=== PATIENT | female | born 1935 | race Caucasian/White ===

== ENCOUNTER 2018-03-19 05:15 | Observation (INO) | payer MEDICARE ==
[2018-03-19] MEDS ORDERED: ENALAPRILAT 1.25 MG/ML 1 ML VIAL IVP STA (06:02)
[2018-03-19 06:11] LABS: Basophils % (A) 0 %; Eosinophils # (A) 0.2 k/uL (0-0.7); Eosinophils % (A) 3 %; HCT 39.9 % (34.0-46.0); Lymphocytes # (A) 2.1 k/uL (1.0-4.8); Lymphocytes % (A) 26 %; MCH 30.3 pg (25.0-35.0); MCHC 32.6 g/dL (31.0-37.0); MCV 92.9 fL (80.0-100.0); Mean Platelet Volume 7.9; Monocytes # (A) 0.7 k/uL (0-1.0); Monocytes % (A) 9 %; Neutrophils # (A) 4.7 k/uL (1.3-7.7); Neutrophils % (A) 59 %; Platelet Count 223 k/uL (150-450); RBC 4.29 m/uL (3.80-5.40); RDW 12.8 % (11.5-15.5); WBC 7.9 k/uL (3.8-10.6)
[2018-03-19 06:20] LABS: Partial Thromboplastin Time 22.2 sec (22.0-30.0)
[2018-03-19 06:22] LABS: Albumin 3.6 g/dL (3.5-5.0); Calcium 9.3 mg/dL (8.4-10.2); Magnesium 1.8 mg/dL (1.6-2.3); Potassium 3.8 mmol/L (3.5-5.1); Total Bilirubin 0.7 mg/dL (0.2-1.3); Total Protein 6.2 g/dL (6.3-8.2)
--- NOTE | 2018-03-19 06:23 | ED ---
General Adult HPI - General Chief complaint: Recheck/Abnormal Lab/Rx Stated complaint: hypertension Time Seen by Provider: 03/19/18 05:28 Source: patient Mode of arrival: EMS Limitations: no limitations - History of Present Illness Initial comments: Marielle is a sweet 82-year-old female who presents the emergency department today for evaluation of persistent lightheadedness and hypertension. Patient reports that approximately 2 weeks ago she had multiple changes to her medications. Her valsartan which she has been on for a number of years was discontinued. Her Lasix which she had been on was discontinued by her primary care physician due to an kidney function, and addition her pharmacy sent her metoprolol succinate rather than tartrate which caused her severe lightheadedness and she couldn't take it and had to await the proper medication being delivered to her. Her ports that since these medication changes she's been experiencing lightheadedness intermittently. She states that on of last week they had a republican at her living facility and she ate a lot of chocolate and sweets and is that she knows causes her migraines. She reports that she did develop a pretty significant headache that night but attributed it to the food she was eating. She was evaluated by the care provider at her home at that time but refused transfer to the ER. Patient reports that since that time she's had mild diffuse headache, and today she got up to use the restroom from sleep and felt very lightheaded. She checked her blood pressure and it was over 200/100 so the ambulance was called for transfer to the ER Patient has a history of headaches, she reports that this is similar in character to previous. Eyes any vision change or difficulty spacer swallowing hearing loss or focal neurologic deficits. She denies any chest pain, palpitations or shortness of breath. She's been able to attend to her regular daily activities without difficulty. - Related Data Home Medications Medication Instructions Recorded Confirmed Metoprolol Tartrate [Lopressor] 50 mg PO BID 03/19/18 03/19/18 Allergies Allergy/AdvReac Type Severity Reaction Status Date / Time codeine AdvReac Unknown Verified 03/19/18 05:20 Review of Systems ROS Statement: Those systems with pertinent positive or pertinent negative responses have been documented in the HPI. ROS Other: All systems not noted in ROS Statement are negative. Past Medical History Past Medical History: CVA/TIA, Hyperlipidemia, Hypertension History of Any Multi-Drug Resistant Organisms: None Reported Past Surgical History: Appendectomy, Hysterectomy, Orthopedic Surgery Past Psychological History: No Psychological Hx Reported Smoking Status: Never smoker Past Alcohol Use History: None Reported Past Drug Use History: None Reported General Exam - General Exam Comments Initial Comments: GENERAL: Patient is well-developed and well-nourished. Patient is nontoxic and well- hydrated and is in no distress. HENT: Normocephalic, Atraumatic. Neck is soft and supple. No significant lymphadenopathy is noted. Oropharynx is clear. Moist mucous membranes. Neck has full range of motion without eliciting any pain. EYES: The sclera were anicteric and conjunctiva were pink and moist. Extraocular movements were intact and pupils were equal round and reactive to light. Eyelids were unremarkable. PULMONARY: Unlabored respirations. Good breath sounds bilaterally. No audible rales rhonchi or wheezing was noted. CARDIOVASCULAR: There is a regular rate and rhythm without any murmurs gallops or rubs. ABDOMEN: Soft and nontender with normal bowel sounds. SKIN: Skin is clear with no lesions or rashes and otherwise unremarkable. NEUROLOGIC: Patient is alert and oriented x3. Cranial nerves II through XII are grossly intact. Motor and sensory are also intact. Normal speech, volume and content. Symmetrical smile. MUSCULOSKELETAL: Normal extremities with adequate strength and full range of motion. No lower extremity swelling or edema. No calf tenderness. LYMPHATICS: No significant lymphadenopathy is noted PSYCHIATRIC: Normal psychiatric evaluation. Limitations: no limitations Limitations: no limitations Course Vital Signs 03/19/18 03/19/18 03/19/18 05:15 06:46 07:27 Temperature 98.8 F Pulse Rate 68 60 70 Respiratory 20 18 18 Rate Blood Pressure 202/90 157/67 182/79 O2 Sat by Pulse 96 98 99 Oximetry 03/19/18 07:57 Temperature Pulse Rate 56 L Respiratory 18 Rate Blood Pressure 190/74 O2 Sat by Pulse 98 Oximetry EKG Findings - EKG Comments: EKG Findings:: EKG obtained at 6:07 AM, rate is 53, rhythm is sinus bradycardia there are no acute ST elevations or depressions no evidence of acute ischemia or infarction. Medical Decision Making - Medical Decision Making Labs and head CT were ordered IV and enaliprilat was ordered due to patient's persistent bradycardia and hypertension His blood pressure responded transiently to this medication however blood pressure again returned to greater than [address] with chronic ischemic changes Labs at baseline, no elevation of troponin or renal function Patient with persistent headache after blood pressure normalized, as well as some unsteadiness on her feet I attempted to call patient's primary care physician but office was not yet open. This time I do feel the patient warrants admission for evaluation and monitoring of her blood pressure and management of her blood pressure medications. I will feel patient is safe to do this at home if she continues to have symptoms and cannot recall the medication she has been prescribed. Patient care discussed with Dr. Castro who accepts admission for hypertensive urgency - Lab Data Result diagrams: 03/19/18 05:23 03/19/18 05:23 Lab Results 03/19/18 03/19/18 03/19/18 Range/Units 05:23 05:23 05:23 WBC 7.9 (3.8-10.6) k/uL RBC 4.29 (3.80-5.40) m/uL Hgb 13.0 (11.4-16.0) gm/dL Hct 39.9 (34.0-46.0) % MCV 92.9 (80.0-100.0) fL MCH 30.3 (25.0-35.0) pg MCHC 32.6 (31.0-37.0) g/dL RDW 12.8 (11.5-15.5) % Plt Count 223 (150-450) k/uL Neutrophils % 59 % Lymphocytes % 26 % Monocytes % 9 % Eosinophils % 3 % Basophils % 0 % Neutrophils # 4.7 (1.3-7.7) k/uL Lymphocytes # 2.1 (1.0-4.8) k/uL Monocytes # 0.7 (0-1.0) k/uL Eosinophils # 0.2 (0-0.7) k/uL Basophils # 0.0 (0-0.2) k/uL PT (9.0-12.0) sec INR (<1.2) APTT (22.0-30.0) sec Sodium 139 (137-145) mmol/L Potassium 3.8 (3.5-5.1) mmol/L Chloride 107 (98-107) mmol/L Carbon Dioxide 25 (22-30) mmol/L Anion Gap 7 mmol/L BUN 19 H (7-17) mg/dL Creatinine 0.90 (0.52-1.04) mg/dL Est GFR (CKD-EPI)AfAm 69 (>60 ml/min/1.73 sqM) Est GFR (CKD-EPI)NonAf 60 (>60 ml/min/1.73 sqM) Glucose 126 H (74-99) mg/dL Calcium 9.3 (8.4-10.2) mg/dL Magnesium 1.8 (1.6-2.3) mg/dL Total Bilirubin 0.7 (0.2-1.3) mg/dL AST 23 (14-36) U/L ALT 30 (9-52) U/L Alkaline Phosphatase 46 (38-126) U/L Total Creatine Kinase 25 L (30-135) U/L CK-MB (CK-2) 0.5 (0.0-2.4) ng/mL CK-MB (CK-2) Rel Index 2.0 Troponin I <0.012 (0.000-0.034) ng/mL NT-Pro-B Natriuret Pep pg/mL Total Protein 6.2 L (6.3-8.2) g/dL Albumin 3.6 (3.5-5.0) g/dL 03/19/18 03/19/18 Range/Units 05:23 05:23 WBC (3.8-10.6) k/uL RBC (3.80-5.40) m/uL Hgb (11.4-16.0) gm/dL Hct (34.0-46.0) % MCV (80.0-100.0) fL MCH (25.0-35.0) pg MCHC (31.0-37.0) g/dL RDW (11.5-15.5) % Plt Count (150-450) k/uL Neutrophils % % Lymphocytes % % Monocytes % % Eosinophils % % Basophils % % Neutrophils # (1.3-7.7) k/uL Lymphocytes # (1.0-4.8) k/uL Monocytes # (0-1.0) k/uL Eosinophils # (0-0.7) k/uL Basophils # (0-0.2) k/uL PT 10.0 (9.0-12.0) sec INR 1.0 (<1.2) APTT 22.2 (22.0-30.0) sec Sodium (137-145) mmol/L Potassium (3.5-5.1) mmol/L Chloride (98-107) mmol/L Carbon Dioxide (22-30) mmol/L Anion Gap mmol/L BUN (7-17) mg/dL Creatinine (0.52-1.04) mg/dL Est GFR (CKD-EPI)AfAm (>60 ml/min/1.73 sqM) Est GFR (CKD-EPI)NonAf (>60 ml/min/1.73 sqM) Glucose (74-99) mg/dL Calcium (8.4-10.2) mg/dL Magnesium (1.6-2.3) mg/dL Total Bilirubin (0.2-1.3) mg/dL AST (14-36) U/L ALT (9-52) U/L Alkaline Phosphatase (38-126) U/L Total Creatine Kinase (30-135) U/L CK-MB (CK-2) (0.0-2.4) ng/mL CK-MB (CK-2) Rel Index Troponin I (0.000-0.034) ng/mL NT-Pro-B Natriuret Pep 627 pg/mL Total Protein (6.3-8.2) g/dL Albumin (3.5-5.0) g/dL Disposition Clinical Impression: Hypertensive urgency Disposition: ADMITTED IP TO THIS HOSP Referrals: Kenai Nava MD [Primary Care Provider] - 1-2 days
[2018-03-19 06:31] LABS: Creatine Kinase 25 U/L (30-135)
[2018-03-19 06:44] LABS: Creatine Kinase MB 0.5 ng/mL (0.0-2.4); Troponin I <0.012 ng/mL (0.000-0.034)
--- NOTE | 2018-03-19 06:58 | CT ---
EXAM: CT Head Without Intravenous Contrast CLINICAL HISTORY: headache, BP 202/100 TECHNIQUE: Axial computed tomography images of the head/brain without intravenous contrast. CTDI is 55.40 mGy and DLP is 1010.50 mGy-cm. This CT exam was performed using one or more of the following dose reduction techniques: automated exposure control, adjustment of the mA and/or kV according to patient size, and/or use of iterative reconstruction technique. COMPARISON: No relevant prior studies available. FINDINGS: Brain: Cerebral atrophy is identified. Periventricular and subcortical deep white matter hypodense changes noted. No hemorrhage. Ventricles: Unremarkable. No ventriculomegaly. Bones/joints: Unremarkable. No acute fracture. Soft tissues: Unremarkable. Vasculature: Episodic calcification of the cavernous and supraclinoid internal carotid arteries noted. Sinuses: Unremarkable as visualized. No acute sinusitis. Mastoid air cells: Unremarkable as visualized. No mastoid effusion. IMPRESSION: No acute intracranial process identified. Underlying cerebral atrophy and presumed microvascular deep white matter changes incidentally noted.
--- NOTE | 2018-03-19 07:15 | XR ---
EXAM: XR Chest, 2 Views CLINICAL HISTORY: Chest pain TECHNIQUE: Frontal and lateral views of the chest. COMPARISON: No relevant prior studies available. FINDINGS: Lungs: No segmental airspace disease identified. Subsegmental changes in the lingular segments is difficult to exclude. No radiographic findings for CHF. Pleural space: No pleural effusion. No pneumothorax. Heart: Cardiomegaly of uncertain chronicity. Mediastinum: No significant abnormality suggested. Bones/joints: Degenerative changes of the thoracic spine. Vasculature: Atherosclerotic calcification of the aortic arch. IMPRESSION: Cardiomegaly of uncertain chronicity. No segmental airspace disease. No pleural effusion or pneumothorax.
[2018-03-19] MEDS ORDERED: NALOXONE 0.4 MG/ML 1 ML VIAL IV PRN (08:06)
[2018-03-19] MEDS ORDERED: cloNIDine HCL 0.1 MG TAB PO STA (08:07)
[2018-03-19] MEDS: METOPROLOL TARTRATE 50 MG TAB PO SCH ×2 (10:12→22:08)
--- NOTE | 2018-03-19 11:05 | P.HPIM ---
History of Present Illness H&P Date: 03/19/18 Chief Complaint: Dizziness and hypertension This is an 82-year-old female patient of Dr. Lizama. Patient presented to the emergency room with complaints of lightheadedness and high blood pressure. Patient has been followed by her primary care provider in about 2 weeks ago had her medications switched including her Lasix being discontinued due to her kidney function. For the past 2 weeks patient has been on Metroprolol 50 mg twice a day and Dyazide when necessary. Patient stated that she is required to take the Dyazide approximately 3 times this week due to increased peripheral edema. Patient reports that for the past week she's had headache along with the feeling of feeling lightheaded. Patient checks her blood pressure at home and was over 200 an ambulance was called and patient was transferred to the ER. Patient has known past medical history of CVA proximally 2 years ago with no residuals, hyperlipidemia and hypertension. Patient received 0.1 mg of Catapres and 1.25 g IV push of Vasotec in the emergency room. At that time Joe patient's blood pressure was 202/90 and heart rate was 68. CT of head completed showing no acute intracranial process identified. Underlying cerebral atrophy and presumed microvascular deep white matter changes incidentally noted. Chest x-ray completed showing cardiomegaly of uncertain chronicicty. No segmental airspace disease. No pleural effusion or pneumothorax. EKG completed showing sinus bradycardia heart rate 53. Upon arrival to the floor patient's blood pressure low 100 with repeat blood pressure in the 80s. Heart rate 50. Lopressor held. Cardiology services have been consulted. Patient denies any symptoms of low blood pressure. Patient is alert and oriented 3. Patient denies nausea vomiting or diarrhea. Patient denies chest pain or shortness of breath. Patient denies any urinary burning or frequency. Awaiting cardiology consult. Per nursing staff will repeat blood pressure. Review of Systems Please refer to HPI otherwise unremarkable Past Medical History Past Medical History: CVA/TIA, Hyperlipidemia, Hypertension History of Any Multi-Drug Resistant Organisms: None Reported Past Surgical History: Appendectomy, Hysterectomy, Orthopedic Surgery Past Psychological History: No Psychological Hx Reported Smoking Status: Never smoker Past Alcohol Use History: None Reported Past Drug Use History: None Reported Medications and Allergies Home Medications Medication Instructions Recorded Confirmed Type Artificial Tears-Hypromellose 1 drops BOTH EYES BID PRN 03/19/18 03/19/18 History [Artificial Tear Drops] Brinzolamide [Azopt 1% Ophth Susp] 2 drop LEFT EYE BID 03/19/18 03/19/18 History Cholecalciferol [Vitamin D3] 1,000 unit PO DAILY 03/19/18 03/19/18 History Latanoprost [Xalatan 0.005%] 1 drop BOTH EYES HS 03/19/18 03/19/18 History Metoprolol Tartrate [Lopressor] 50 mg PO BID 03/19/18 03/19/18 History Ranitidine HCl [Zantac] 150 mg PO HS 03/19/18 03/19/18 History Triamterene-Hctz 37.5-25Mg 1 cap PO DAILY PRN 03/19/18 03/19/18 History [Dyazide 37.5-25 Capsule] Vits A,C,E/Lutein/Minerals 1 tab PO DAILY 03/19/18 03/19/18 History [Ocuvite with Lutein Tablet] Allergies Allergy/AdvReac Type Severity Reaction Status Date / Time codeine AdvReac Unknown Verified 03/19/18 08:30 telmisartan [From Micardis] AdvReac DIZZINESS Verified 03/19/18 08:39 Physical Exam Vitals: Vital Signs Temp Pulse Resp BP Pulse Ox 03/19/18 09:20 97.8 F 03/19/18 08:55 50 L 18 166/72 98 03/19/18 08:27 57 L 18 158/107 97 03/19/18 07:57 56 L 18 190/74 98 03/19/18 07:27 70 18 182/79 99 03/19/18 06:46 60 18 157/67 98 03/19/18 05:15 98.8 F 68 20 202/90 96 Intake and Output 03/18/18 03/19/18 03/19/18 22:59 06:59 14:59 Other: Voiding Method Toilet Incontinent Weight 73.482 kg Head normocephalic Neck supple Lungs clear to auscultation bilaterally no wheezing or crackles Heart regular rate and rhythm S1-S2, no rub or gallop Abdomen is soft nontender nondistended positive bowel sounds no hepatosplenomegaly Extremities no edema Neuro alert and orientated to 3 Results CBC & Chem 7: 03/19/18 05:23 03/19/18 05:23 Labs: Abnormal Lab Results - Last 24 Hours (Table) 03/19/18 03/19/18 Range/Units 05:23 05:23 BUN 19 H (7-17) mg/dL Glucose 126 H (74-99) mg/dL Total Creatine Kinase 25 L (30-135) U/L Total Protein 6.2 L (6.3-8.2) g/dL Thrombosis Risk Factor Assmnt - Choose All That Apply Each Factor Represents 1 point: Swollen legs (current) Each Risk Factor Represents 3 Points: Age 75 years or older Thrombosis Risk Factor Assessment Total Risk Factor Score: 4 Thrombosis Risk Factor Assessment Level: Moderate Risk Assessment and Plan Assessment: 1. Hypertensive urgency. Initial blood pressure 202/90. She received Catapres and Vasotec emergency room. Patient has been taking Lopressor 50 mg twice a day along with Dyazide when necessary at home for the past 2 weeks. Patient's blood pressure now hypotensive. Chest x-ray completed showing cardiomegaly of uncertain chronicity. No segmental airspace disease. No pleural effusion or pneumothorax. Cardiology services have been consulted. Parameters set for Lopressor. 2. History of CVA. Head CT completed emergency room showing no acute intracranial process identified. Underlying cerebral atrophy and presumed microvascular deep white matter changes incidentally noted. 3. History of hyperlipidemia 4. History of macular degeneration. Home eyedrops reordered 5. History of acute kidney injury. Creatinine on this admission 0.90 and bun 19 6. Bradycardia. Heart rate in the 50s. Patient did receive Catapres in the emergency department. EKG completed showing sinus bradycardia. Cardiology services have been consulted. DVT prophylaxis Lovenox and GI prophylaxis Pepcid Time with Patient: Greater than 30 (Greater than 60% of the total time spent in counseling and coordination of care. I performed an examination of the patient and discussed their management with the Nurse Practitioner. I have reviewed the Nurse Practitioner's notes and agree with the documented findings and plan of care)
[2018-03-19] MEDS: ACETAMINOPHEN TAB 325 MG TAB PO PRN ×2 (13:59→18:26)
[2018-03-19] MEDS ORDERED: NON-FORMULARY DRUG (Ranitidine Hcl [Zantac] 150 MG) PO SCH (21:00)
[2018-03-19] MEDS: DORZOLAMIDE HCL 2% DROPS 10 ML BTL LEFT EYE SCH (22:07)
[2018-03-19] MEDS: ARTIFICIAL TEARS-HYPROMELLOSE DROPS 15 ML BTL BOTH EYES PRN (22:09)
[2018-03-19] MEDS: LATANOPROST 0.005% OPHTH DROPS 2.5 ML BTL BOTH EYES SCH (23:01)
[2018-03-20] MEDS: CHOLECALCIFEROL 1,000 UNIT TAB PO SCH (08:31)
[2018-03-20] MEDS: DORZOLAMIDE HCL 2% DROPS 10 ML BTL LEFT EYE SCH ×2 (08:31→21:01)
[2018-03-20] MEDS: ENOXAPARIN 40 MG/0.4 ML SYRINGE SQ SCH (08:32)
[2018-03-20] MEDS: FAMOTIDINE 20 MG TAB PO SCH (08:32)
[2018-03-20] MEDS: METOPROLOL TARTRATE 50 MG TAB PO SCH ×2 (08:32→21:04)
[2018-03-20] MEDS: VIT A,C & E-LUTEIN-MINERALS 1 EACH TAB PO SCH (08:33)
[2018-03-20] MEDS: ARTIFICIAL TEARS-HYPROMELLOSE DROPS 15 ML BTL BOTH EYES PRN ×2 (08:33→20:57)
[2018-03-20 10:37] LABS: Basophils % (A) 0 %; Eosinophils # (A) 0.3 k/uL (0-0.7); Eosinophils % (A) 4 %; HCT 40.9 % (34.0-46.0); Lymphocytes # (A) 1.5 k/uL (1.0-4.8); Lymphocytes % (A) 23 %; MCH 30.1 pg (25.0-35.0); MCHC 31.7 g/dL (31.0-37.0); Mean Platelet Volume 7.6; Monocytes # (A) 0.5 k/uL (0-1.0); Monocytes % (A) 8 %; Neutrophils % (A) 61 %; Platelet Count 223 k/uL (150-450); RDW 12.7 % (11.5-15.5); WBC 6.6 k/uL (3.8-10.6)
[2018-03-20 10:55] LABS: Albumin 3.3 g/dL (3.5-5.0); Magnesium 1.8 mg/dL (1.6-2.3); Potassium 4.1 mmol/L (3.5-5.1); Total Bilirubin 0.6 mg/dL (0.2-1.3); Total Protein 5.9 g/dL (6.3-8.2)
[2018-03-20] MEDS: amLODIPine 2.5 MG TAB PO SCH (13:30)
[2018-03-20] MEDS ORDERED: TRIAMTERENE-HCTZ 37.5-25MG 1 EACH CAP PO PRN (14:15)
--- NOTE | 2018-03-20 14:16 | P.PN ---
Subjective Progress Note Date: 03/20/18 This is an 82-year-old female patient of Dr. Lizama. Patient presented to the emergency room with complaints of lightheadedness and high blood pressure. Patient has been followed by her primary care provider in about 2 weeks ago had her medications switched including her Lasix being discontinued due to her kidney function. For the past 2 weeks patient has been on Metroprolol 50 mg twice a day and Dyazide when necessary. Patient stated that she is required to take the Dyazide approximately 3 times this week due to increased peripheral edema. Patient reports that for the past week she's had headache along with the feeling of feeling lightheaded. Patient checks her blood pressure at home and was over 200 an ambulance was called and patient was transferred to the ER. Patient has known past medical history of CVA proximally 2 years ago with no residuals, hyperlipidemia and hypertension. Patient received 0.1 mg of Catapres and 1.25 g IV push of Vasotec in the emergency room. At that time Joe patient's blood pressure was 202/90 and heart rate was 68. CT of head completed showing no acute intracranial process identified. Underlying cerebral atrophy and presumed microvascular deep white matter changes incidentally noted. Chest x-ray completed showing cardiomegaly of uncertain chronicicty. No segmental airspace disease. No pleural effusion or pneumothorax. EKG completed showing sinus bradycardia heart rate 53. Upon arrival to the floor patient's blood pressure low 100 with repeat blood pressure in the 80s. Heart rate 50. Lopressor held. Cardiology services have been consulted. Patient denies any symptoms of low blood pressure. Patient is alert and oriented 3. Patient denies nausea vomiting or diarrhea. Patient denies chest pain or shortness of breath. Patient denies any urinary burning or frequency. Awaiting cardiology consult. Per nursing staff will repeat blood pressure. On 03/20/2018 patient is currently resting comfortably in bed. Patient is alert and oriented 3. Patient does state she feels much improved from yesterday. Heart rate 61 and blood pressure 135/83. Cardiology services are following. 2-D echo has been ordered. At this time patient denies chest pain or shortness of breath. Denies any nausea vomiting or diarrhea. Denies any urinary burning or frequency. Objective - Vital Signs Vital signs: Vital Signs Temp 97.6 F 03/20/18 05:45 Pulse 61 03/20/18 13:32 Resp 20 03/20/18 05:45 BP 135/83 03/20/18 13:32 Pulse Ox 97 03/20/18 05:45 Intake & Output 03/19/18 03/20/18 03/20/18 18:59 06:59 18:59 Intake Total 230 500 Balance 230 500 Intake: Oral 230 500 Other: Voiding Method Toilet Incontinent # Voids 4 3 # Bowel Movements 1 0 - Exam Head normocephalic Neck supple Lungs clear to auscultation bilaterally no wheezing or crackles Heart regular rate and rhythm S1-S2, no rub or gallop Abdomen is soft nontender nondistended positive bowel sounds no hepatosplenomegaly Extremities no edema Neuro alert and orientated to 3 - Labs CBC & Chem 7: 03/20/18 09:45 03/20/18 09:45 Labs: Abnormal Lab Results - Last 24 Hours (Table) 03/20/18 Range/Units 09:45 Glucose 121 H (74-99) mg/dL Total Protein 5.9 L (6.3-8.2) g/dL Albumin 3.3 L (3.5-5.0) g/dL Assessment and Plan Assessment: 1. Hypertensive urgency. Initial blood pressure 202/90. She received Catapres and Vasotec emergency room. Patient has been taking Lopressor 50 mg twice a day along with Dyazide when necessary at home for the past 2 weeks. Patient's blood pressure now hypotensive. Chest x-ray completed showing cardiomegaly of uncertain chronicity. No segmental airspace disease. No pleural effusion or pneumothorax. Cardiology services have been consulted. Parameters set for Lopressor. Cardiology services following 2-D echo has been ordered. 2. History of CVA. Head CT completed emergency room showing no acute intracranial process identified. Underlying cerebral atrophy and presumed microvascular deep white matter changes incidentally noted. 3. History of hyperlipidemia 4. History of macular degeneration. Home eyedrops reordered 5. History of acute kidney injury. Creatinine on this admission 0.90 and bun 19 6. Bradycardia. Heart rate in the 50s. Patient did receive Catapres in the emergency department. EKG completed showing sinus bradycardia. Cardiology services have been consulted. 2-D echo has been ordered DVT prophylaxis Lovenox and GI prophylaxis Pepcid I performed an examination of the patient and discussed their management with the Nurse Practitioner. I have reviewed the Nurse Practitioner's notes and agree with the documented findings and plan of care
--- NOTE | 2018-03-20 15:38 | CONS ---
CONSULTATION This patient is seen for cardiac evaluation. History was obtained from the patient as well as from the records. This patient presented to the emergency room with a complaint of lightheadedness. She checked her blood pressure at home and it was elevated. This patient gives a history that she used to take valsartan before which was discontinued. Subsequently patient was advised to take the Lasix or Dyazide p.r.n. Her blood pressure a at home was 200 systolic. The patient does have a prior history of stroke without any residual deficit. The patient came to the emergency room patient received Catapres and Vasotec and subsequently her blood pressure is stable. She is feeling well. She denies any chest pain. The patient denies any history of myocardial infarction. Patient is physically and functionally independent. PAST MEDICAL HISTORY: Includes history of hypertension, hyperlipidemia, CVA and TIA, appendicectomy, hysterectomy, orthopedic surgery. HOME MEDICATIONS: Included Zantac, Lopressor and eye drops. PHYSICAL EXAMINATION: At present reveals 82-year-old female who does not appear to be in any acute distress. Patient's blood pressure now is 151/64 mmHg. Head and ENT examination is negative. Neck is supple. There is no increase in jugular venous pressure. Both the carotid pulses are felt. There is no bruit. Chest is symmetrical. Heart: The PMI is not felt. First and second heart sounds are normal. There is no evidence of any murmur. Lungs are clinically clear to auscultation and percussion. Abdomen is negative. Extremities: Peripheral pulses are 2+. EKG shows normal sinus rhythm without any acute ischemic changes. A BMP is normal. BNP was also normal. Chest x-ray is normal. CT scan of the brain was normal. FINAL IMPRESSION: This patient initially came to the emergency room with uncontrolled hypertension. Her blood pressure is now controlled. I would recommend to add amlodipine 2.5 mg daily in addition to the low blood pressure. Patient advised to keep record of her blood pressure at home. If it remains elevated, it can be increased to 5 mg daily. Echo and Doppler study will be done. MMODL / IJN: [id number] /
[2018-03-20] MEDS: LATANOPROST 0.005% OPHTH DROPS 2.5 ML BTL BOTH EYES SCH (21:02)
[2018-03-21] MEDS: ACETAMINOPHEN TAB 325 MG TAB PO PRN ×2 (01:51→05:21)
[2018-03-21] MEDS ORDERED: IBUPROFEN 600 MG TAB PO PRN (07:02)
[2018-03-21] MEDS: FAMOTIDINE 20 MG TAB PO SCH (08:19)
[2018-03-21] MEDS: ENOXAPARIN 40 MG/0.4 ML SYRINGE SQ SCH (08:19)
[2018-03-21] MEDS: CHOLECALCIFEROL 1,000 UNIT TAB PO SCH (08:19)
[2018-03-21] MEDS: amLODIPine 2.5 MG TAB PO SCH (08:19)
[2018-03-21] MEDS: METOPROLOL TARTRATE 50 MG TAB PO SCH (08:19)
[2018-03-21] MEDS: VIT A,C & E-LUTEIN-MINERALS 1 EACH TAB PO SCH (08:19)
[2018-03-21] MEDS: DORZOLAMIDE HCL 2% DROPS 10 ML BTL LEFT EYE SCH (08:20)
[2018-03-21 08:34] LABS: Basophils % (A) 0 %; Eosinophils # (A) 0.3 k/uL (0-0.7); Eosinophils % (A) 4 %; HCT 42.8 % (34.0-46.0); HGB 13.6 gm/dL (11.4-16.0); Lymphocytes # (A) 2.2 k/uL (1.0-4.8); Lymphocytes % (A) 29 %; MCH 29.6 pg (25.0-35.0); MCHC 31.7 g/dL (31.0-37.0); MCV 93.5 fL (80.0-100.0); Mean Platelet Volume 7.3; Monocytes # (A) 0.6 k/uL (0-1.0); Monocytes % (A) 8 %; Neutrophils # (A) 4.1 k/uL (1.3-7.7); Neutrophils % (A) 56 %; Platelet Count 228 k/uL (150-450); RBC 4.58 m/uL (3.80-5.40); RDW 12.8 % (11.5-15.5); WBC 7.4 k/uL (3.8-10.6)
[2018-03-21 08:43] VITALS: RESP 16; TEMP 97.9
[2018-03-21 09:05] LABS: Albumin 3.8 g/dL (3.5-5.0); Calcium 9.3 mg/dL (8.4-10.2); Potassium 4.2 mmol/L (3.5-5.1); Total Bilirubin 0.9 mg/dL (0.2-1.3); Total Protein 6.5 g/dL (6.3-8.2)
[2018-03-21 11:24] VITALS: BP 125/62; PULSE 57
--- NOTE | 2018-03-21 12:06 | ECHOF ---
Referral Reason:hypertention MEASUREMENTS -------- HEIGHT: 147.3 cm WEIGHT: 73.5 kg BP: 113/69 IVSd: 1.3 cm (0.6 - 1.1) LVIDd: 3.6 cm (3.9 - 5.3) LVPWd: 1.4 cm (0.6 - 1.1) IVSs: 1.5 cm LVIDs: 2.6 cm LVPWs: 1.6 cm LA Diam: 4.8 cm (2.7 - 3.8) LAESV Index (A-L): 54.00 ml/m Ao Diam: 2.9 cm (2.0 - 3.7) AV Cusp: 1.2 cm (1.5 - 2.6) LA Diam: 4.7 cm (2.7 - 3.8) MV EXCURSION: 13.883 mm (> 18.000) MV EF SLOPE: 74 mm/s (70 - 150) EPSS: 0.2 cm MV E Billy: 1.05 m/s MV DecT: 207 ms MV A Billy: 1.05 m/s MV E/A Ratio: 0.99 RAP: 5.00 mmHg RVSP: 46.67 mmHg FINDINGS -------- Sinus rhythm. This was a technically good study. The left ventricular size is normal. There is mild concentric left ventricular hypertrophy. Overa ll left ventricular systolic function is normal with, an EF between 60 - 65 %. Pseudonormal LV fill ing pattern, consistent with elevated LA pressure. The right ventricle is normal in size. The left atrium is markedly dilated. LA is severely dilated >40 ml/m2 The right atrial size is normal. There is mild aortic valve sclerosis. There is no evidence of aortic regurgitation. Mild mitral annular calcification present. Wstu-dt-[id number] mitral regurgitation is present. Mild tricuspid regurgitation present. There is moderate pulmonary hypertension. The right ventric ular systolic pressure, as measured by Doppler, is 46.67mmHg. Trace/mild (physiologic) pulmonic regurgitation. The aortic root size is normal. There is no pericardial effusion. CONCLUSIONS -------- 1. The left ventricular size is normal. 2. There is mild concentric left ventricular hypertrophy. 3. Overall left ventricular systolic function is normal with, an EF between 60 - 65 %. 4. The right ventricle is normal in size. 5. The left atrium is markedly dilated. 6. LA is severely dilated >40 ml/m2 7. The right atrial size is normal. 8. There is mild aortic valve sclerosis. 9. Mild mitral annular calcification present. 10. Iktx-dp-kxapxlfu mitral regurgitation is present. 11. Mild tricuspid regurgitation present. 12. There is moderate pulmonary hypertension. 13. The right ventricular systolic pressure, as measured by Doppler, is 46.67mmHg. 14. Trace/mild (physiologic) pulmonic regurgitation. 15. The aortic root size is normal. 16. There is no pericardial effusion. JIG GRINDER: Maia Moscoso RDCS
--- NOTE | 2018-03-21 13:12 | P.DS ---
Providers Date of admission: 03/19/18 08:34 Expected date of discharge: 03/21/18 Attending physician: Liya Castro Consults: 03/19/18 10:49 Consult Physician Routine Consulting Provider: Louie Arteaga Consult Reason/Comments: bradycardia and hypertension Do you want consulting provider notified?: Yes Primary care physician: Kenia [facility] Hospital Course: Discharge diagnosis 1. Hypertensive urgency. Initial blood pressure 202/90. She received Catapres and Vasotec emergency room. Patient has been taking Lopressor 50 mg twice a day along with Dyazide when necessary at home for the past 2 weeks. Patient's blood pressure now hypotensive. Chest x-ray completed showing cardiomegaly of uncertain chronicity. No segmental airspace disease. No pleural effusion or pneumothorax. Cardiology services have been consulted. Parameters set for Lopressor. Cardiology services following 2-D echo has been ordered. 2-D echo completed showing EF of 60-65%. Discussed case with cardiology INSTRUCTIONAL TECHNOLOGY TEACHER Tamara. Tavares for patient to be discharged home. Patient started on Norvasc 2.5 mg daily 2. History of CVA. Head CT completed emergency room showing no acute intracranial process identified. Underlying cerebral atrophy and presumed microvascular deep white matter changes incidentally noted. 3. History of hyperlipidemia 4. History of macular degeneration. Home eyedrops reordered 5. History of acute kidney injury. Creatinine on this admission 0.90 and bun 19 6. Bradycardia. Heart rate in the 50s. Patient did receive Catapres in the emergency department. EKG completed showing sinus bradycardia. Cardiology services have been consulted. Hospital course This is an 82-year-old female patient of Dr. Lizama. Patient presented to the emergency room with complaints of lightheadedness and high blood pressure. Patient has been followed by her primary care provider in about 2 weeks ago had her medications switched including her Lasix being discontinued due to her kidney function. For the past 2 weeks patient has been on Metroprolol 50 mg twice a day and Dyazide when necessary. Patient stated that she is required to take the Dyazide approximately 3 times this week due to increased peripheral edema. Patient reports that for the past week she's had headache along with the feeling of feeling lightheaded. Patient checks her blood pressure at home and was over 200 an ambulance was called and patient was transferred to the ER. Patient has known past medical history of CVA proximally 2 years ago with no residuals, hyperlipidemia and hypertension. Patient received 0.1 mg of Catapres and 1.25 g IV push of Vasotec in the emergency room. At that time Joe patient's blood pressure was 202/90 and heart rate was 68. CT of head completed showing no acute intracranial process identified. Underlying cerebral atrophy and presumed microvascular deep white matter changes incidentally noted. Chest x-ray completed showing cardiomegaly of uncertain chronicicty. No segmental airspace disease. No pleural effusion or pneumothorax. EKG completed showing sinus bradycardia heart rate 53. Upon arrival to the floor patient's blood pressure low 100 with repeat blood pressure in the 80s. Heart rate 50. Lopressor held. Cardiology services have been consulted. Patient denies any symptoms of low blood pressure. Patient is alert and oriented 3. Patient denies nausea vomiting or diarrhea. Patient denies chest pain or shortness of breath. Patient denies any urinary burning or frequency. Awaiting cardiology consult. Per nursing staff will repeat blood pressure. On 03/20/2018 patient is currently resting comfortably in bed. Patient is alert and oriented 3. Patient does state she feels much improved from yesterday. Heart rate 61 and blood pressure 135/83. Cardiology services are following. 2-D echo has been ordered. At this time patient denies chest pain or shortness of breath. Denies any nausea vomiting or diarrhea. Denies any urinary burning or frequency. On 03/21/2018 patient is resting comfortably in bed. Patient is alert and oriented 3. 2-D echo completed and read per cardiology. Discussed case with cardiology nurse practitioner. Okay for patient to be discharged home. Patient has been started on Norvasc 2.5 mg daily. Patient does state she has a blood pressure cuff at home and will continue to monitor blood pressure daily. Patient to follow-up outpatient with primary care provider and cardiology I performed an examination of the patient and discussed their management with the Nurse Practitioner. I have reviewed the Nurse Practitioner's notes and agree with the documented findings and plan of care Patient Condition at Discharge: Stable Plan - Discharge Summary Discharge Rx Participant: No New Discharge Prescriptions: New amLODIPine [Norvasc] 2.5 mg PO DAILY #30 tab Continue Metoprolol Tartrate [Lopressor] 50 mg PO BID Vits A,C,E/Lutein/Minerals [Ocuvite with Lutein Tablet] 1 tab PO DAILY Ranitidine HCl [Zantac] 150 mg PO HS Cholecalciferol [Vitamin D3] 1,000 unit PO DAILY Triamterene-Hctz 37.5-25Mg [Dyazide 37.5-25 Capsule] 1 cap PO DAILY PRN PRN Reason: Edema Latanoprost [Xalatan 0.005%] 1 drop BOTH EYES HS Brinzolamide [Azopt 1% Ophth Susp] 2 drop LEFT EYE BID Artificial Tears-Hypromellose [Artificial Tear Drops] 1 drops BOTH EYES BID PRN PRN Reason: DRY EYES Discharge Medication List Artificial Tears-Hypromellose [Artificial Tear Drops] 1 drops BOTH EYES BID PRN 03/19/18 [History] Brinzolamide [Azopt 1% Ophth Susp] 2 drop LEFT EYE BID 03/19/18 [History] Cholecalciferol [Vitamin D3] 1,000 unit PO DAILY 03/19/18 [History] Latanoprost [Xalatan 0.005%] 1 drop BOTH EYES HS 03/19/18 [History] Metoprolol Tartrate [Lopressor] 50 mg PO BID 03/19/18 [History] Ranitidine HCl [Zantac] 150 mg PO HS 03/19/18 [History] Triamterene-Hctz 37.5-25Mg [Dyazide 37.5-25 Capsule] 1 cap PO DAILY PRN [History] Vits A,C,E/Lutein/Minerals [Ocuvite with Lutein Tablet] 1 tab PO DAILY 03/19/18 [History] amLODIPine [Norvasc] 2.5 mg PO DAILY #30 tab 03/21/18 [Rx] Follow up Appointment(s)/Referral(s): Kenia Nava MD [Primary Care Provider] - 3 Days Brant Garcia MD [STAFF PHYSICIAN] - 1 Week Patient Instructions/Handouts: Heart Healthy Diet (DC), Hypertension (DC) Activity/Diet/Wound Care/Special Instructions: Cardiac diet. Up with assist, use walker, fall precautions. Elevate legs at rest. Monitor blood pressure at home daily for blood pressure medication Discharge Disposition: HOME SELF-CARE
--- NOTE | 2018-03-21 14:44 | P.PN ---
Subjective Mrs. Boudreaux is seen and examined sitting up at the edge of the bed eating. She denies chest pain, shortness of breath, dizziness or palpitations. Amlodipine was added to blood pressure regimen yesterday. Blood pressure 125/62 heart rate 57 afebrile and maintaining oxygen saturation on room air. Laboratory data reviewed, hgb 13.6, plt 228, sodium 140, potassium 4.2, creatinine 0.93. Echocardiogram obtained reveals preserved left ventricular systolic function with ejection fraction 60-65%, mild concentric left ventricular hypertrophy, severely dilated left atrium, mild to moderate MR, mild TR and moderate pulmonary hypertension with RVSP of 46.67 mmHg. Objective - Vital Signs Vital signs: Vital Signs Temp 97.9 F 03/21/18 07:00 Pulse 57 L 03/21/18 11:15 Resp 16 03/21/18 07:00 BP 125/62 03/21/18 11:15 Pulse Ox 98 03/21/18 07:00 Intake & Output 03/20/18 03/21/18 03/21/18 18:59 06:59 18:59 Intake Total 1210 200 Balance 1210 200 Intake: IV 10 Invasive Line 1 10 Oral 1200 200 Other: Voiding Method Toilet # Voids 1 1 - Exam GENERAL: Well-appearing, well-nourished and in no acute distress. NECK: Supple without JVD or thyromegaly. LUNGS: Breath sounds clear to auscultation bilaterally. Respiration equal and unlabored. No wheezes, rales or rhonchi. HEART: Regular rate and rhythm with systolic ejection murmur at the apex, no rubs or gallops. S1 and S2 heard. EXTREMITIES: Normal range of motion, no edema. No clubbing or cyanosis. Peripheral pulses intact. - Labs CBC & Chem 7: 03/21/18 08:22 03/21/18 08:22 Labs: Abnormal Lab Results - Last 24 Hours (Table) 03/21/18 Range/Units 08:22 BUN 19 H (7-17) mg/dL Glucose 111 H (74-99) mg/dL Assessment and Plan Assessment: ASSESSMENT Hypertensive urgency Dyslipidemia Pulmonary hypertension Mitral regurgitation PLAN Stable from a cardiac perspective. Advised patient to keep a record of her blood pressures at home. Follow-up with Dr. Garcia in 2-3 weeks. Nurse Practitioner note has been reviewed, I agree with a documented findings and plan of care. Patient was seen and examined.
== END 2018-03-21 15:05 | disposition home or self-care (01) ==
LOC: EC 05:15 → 4MS4W 08:34
PROVIDERS: ADMIT Internal Medicine; ATTEND Internal Medicine
DX: I16.0 Hypertensive urgency (principal); E78.5 Hyperlipidemia, unspecified; G43.909 Migraine, unspecified, not intractable, without status migrainosus; H35.30 Unspecified macular degeneration; I27.20 Pulmonary hypertension, unspecified; I34.0 Nonrheumatic mitral (valve) insufficiency; R60.0 Localized edema; R00.1 Bradycardia, unspecified; Z90.710 Acquired absence of both cervix and uterus; Z90.49 Acquired absence of other specified parts of digestive tract; Z86.73 Personal history of transient ischemic attack (TIA), and cerebral infarction without residual deficits; Z79.899 Other long term (current) drug therapy; Z88.5 Allergy status to narcotic agent; Z88.8 Allergy status to other drugs, medicaments and biological substances
CPT/HCPCS: 96372 ×2; 96374; 99285; 36415; 93005; 93306; 83880; 80053 ×3; 84443; 82550; 82553; 83735 ×2; 84484; 85025 ×3; 85610; 85730; 71046; 70450; G0378 ×3; J1650 ×2

== ENCOUNTER 2020-07-25 00:50 | Emergency (ER) | payer BC, MEDICARE ==
[2020-07-25] MEDS ORDERED: SODIUM CHLORIDE 0.9% 1,000 ML IV STA (00:56)
--- NOTE | 2020-07-25 00:56 | ED ---
Weakness HPI - General Stated complaint: Hypertension Time Seen by Provider: 07/25/20 00:51 Source: RN notes reviewed, old records reviewed Mode of arrival: EMS Limitations: no limitations - History of Present Illness Initial comments: This is an 84-year-old female DF for evaluation a few complaints today, complaining of headache and right-sided facial numbness and tingling. Patient is headache that is improving. But was concerned about the numbness and tingling in her face she states she does get migraine headaches had 2 migraines today took Motrin with no help. No traumas no fevers. No other complaints MD Complaint: numbness (To the right side of her face), tingling -: hour(s) Location: face Severity: mild Severity scale (1-10): 2 Quality: tingling, numbness Consistency: intermittent, now resolved Improves with: none Worsens with: none Context: history of similar Associated Symptoms: nausea/vomiting (No vomiting) - Related Data Home Medications Medication Instructions Recorded Confirmed Artificial Tears-Hypromellose 1 drops BOTH EYES BID PRN 03/19/18 03/19/18 [Artificial Tear Drops] Brinzolamide [Azopt 1% Ophth Susp] 2 drop LEFT EYE BID 03/19/18 03/19/18 Cholecalciferol [Vitamin D3 (25 1,000 unit PO DAILY 03/19/18 03/19/18 Mcg = 1000 Iu)] Latanoprost [Xalatan 0.005%] 1 drop BOTH EYES HS 03/19/18 03/19/18 Metoprolol Tartrate [Lopressor] 50 mg PO BID 03/19/18 03/19/18 Ranitidine HCl [Zantac] 150 mg PO HS 03/19/18 03/19/18 Triamterene-Hctz 37.5-25Mg 1 cap PO DAILY PRN 03/19/18 03/19/18 [Dyazide 37.5-25 Capsule] Vits A,C,E/Lutein/Minerals 1 tab PO DAILY 03/19/18 03/19/18 [Ocuvite with Lutein Tablet] Previous Rx's Medication Instructions Recorded amLODIPine [Norvasc] 2.5 mg PO DAILY #30 tab 03/21/18 Allergies Allergy/AdvReac Type Severity Reaction Status Date / Time codeine AdvReac Unknown Verified 07/25/20 01:14 telmisartan [From Micardis] AdvReac DIZZINESS Verified 07/25/20 01:14 Review of Systems ROS Statement: Those systems with pertinent positive or pertinent negative responses have been documented in the HPI. ROS Other: All systems not noted in ROS Statement are negative. Past Medical History Past Medical History: CVA/TIA, Hyperlipidemia, Hypertension History of Any Multi-Drug Resistant Organisms: None Reported Past Surgical History: Appendectomy, Hysterectomy, Orthopedic Surgery Past Psychological History: No Psychological Hx Reported Past Alcohol Use History: None Reported Past Drug Use History: None Reported General Exam - General Exam Comments Initial Comments: NIH of 0 General appearance: alert, in no apparent distress Head exam: Present: atraumatic, normocephalic, normal inspection Eye exam: Present: normal appearance, PERRL, EOMI. Absent: scleral icterus, conjunctival injection, periorbital swelling ENT exam: Present: normal exam, mucous membranes moist Neck exam: Present: normal inspection. Absent: tenderness, meningismus, lymphadenopathy Respiratory exam: Present: normal lung sounds bilaterally. Absent: respiratory distress, wheezes, rales, rhonchi, stridor Cardiovascular Exam: Present: regular rate, normal rhythm, normal heart sounds. Absent: systolic murmur, diastolic murmur, rubs, gallop, clicks GI/Abdominal exam: Present: soft, normal bowel sounds. Absent: distended, tenderness, guarding, rebound, rigid Extremities exam: Present: normal inspection, full ROM, normal capillary refill. Absent: tenderness, pedal edema, joint swelling, calf tenderness Back exam: Present: normal inspection Neurological exam: Present: alert, oriented X3, CN II-XII intact Psychiatric exam: Present: normal affect, normal mood Skin exam: Present: warm, dry, intact, normal color. Absent: rash Course Vital Signs 07/25/20 07/25/20 07/25/20 00:54 01:50 02:12 Temperature 98.3 F Pulse Rate 79 80 551 H Respiratory 18 16 16 Rate Blood Pressure 193/92 197/99 173/124 O2 Sat by Pulse 99 95 98 Oximetry 07/25/20 03:00 Temperature Pulse Rate 71 Respiratory 16 Rate Blood Pressure 162/80 O2 Sat by Pulse 97 Oximetry - Reevaluation(s) Reevaluation #1: 07/25/20 03:23 Medical records reviewed Reevaluation #2: 07/25/20 03:23 Symptoms improved here in the emergency department Reevaluation #3: 07/25/20 03:23 Patient has no current complaints Reevaluation #4: 07/25/20 03:23 Patient informed results and questions have been answered EKG Findings - EKG Comments: EKG Findings:: EKG shows sinus rhythm 73 FL 182 QRS 86 QTc 427 Medical Decision Making - Medical Decision Making 84 female DF for evaluation of headache and right-sided tingling. Numbness. Headache is resolved blood pressure resolved all without. Patient is no neurological deficit here in the ER and can be discharged home - Lab Data Result diagrams: 07/25/20 01:08 07/25/20 01:08 Lab Results 07/25/20 07/25/20 07/25/20 Range/Units 01:08 01:08 01:08 WBC 8.9 (3.8-10.6) k/uL RBC 4.49 (3.80-5.40) m/uL Hgb 13.8 (11.4-16.0) gm/dL Hct 40.4 (34.0-46.0) % MCV 90.1 (80.0-100.0) fL MCH 30.8 (25.0-35.0) pg MCHC 34.2 (31.0-37.0) g/dL RDW 12.0 (11.5-15.5) % Plt Count 236 (150-450) k/uL MPV 8.3 Neutrophils % 46 % Lymphocytes % 34 % Monocytes % 9 % Eosinophils % 7 % Basophils % 2 % Neutrophils # 4.1 (1.3-7.7) k/uL Lymphocytes # 3.0 (1.0-4.8) k/uL Monocytes # 0.8 (0-1.0) k/uL Eosinophils # 0.6 (0-0.7) k/uL Basophils # 0.1 (0-0.2) k/uL PT 9.8 (9.0-12.0) sec INR 0.9 (<1.2) APTT 19.1 L (22.0-30.0) sec Sodium 136 L (137-145) mmol/L Potassium 4.8 (3.5-5.1) mmol/L Chloride 103 (98-107) mmol/L Carbon Dioxide 30 (22-30) mmol/L Anion Gap 3 mmol/L BUN 21 H (7-17) mg/dL Creatinine 0.86 (0.52-1.04) mg/dL Est GFR (CKD-EPI)AfAm 72 (>60 ml/min/1.73 sqM) Est GFR (CKD-EPI)NonAf 62 (>60 ml/min/1.73 sqM) Glucose 116 H (74-99) mg/dL Calcium 9.0 (8.4-10.2) mg/dL Phosphorus 3.5 (2.5-4.5) mg/dL Magnesium 1.8 (1.6-2.3) mg/dL Total Bilirubin 0.9 (0.2-1.3) mg/dL AST 39 H (14-36) U/L ALT 20 (4-34) U/L Alkaline Phosphatase 50 (38-126) U/L Creatine Kinase 40 (30-135) U/L Troponin I (0.000-0.034) ng/mL Total Protein 6.8 (6.3-8.2) g/dL Albumin 3.7 (3.5-5.0) g/dL Urine Color Urine Appearance (Clear) Urine pH (5.0-8.0) Ur Specific [place] (1.001-1.035) Urine Protein (Negative) Urine Glucose (UA) (Negative) Urine Ketones (Negative) Urine Blood (Negative) Urine Nitrite (Negative) Urine Bilirubin (Negative) Urine Urobilinogen (<2.0) mg/dL Ur Leukocyte Esterase (Negative) 07/25/20 07/25/20 Range/Units 01:08 02:11 WBC (3.8-10.6) k/uL RBC (3.80-5.40) m/uL Hgb (11.4-16.0) gm/dL Hct (34.0-46.0) % MCV (80.0-100.0) fL MCH (25.0-35.0) pg MCHC (31.0-37.0) g/dL RDW (11.5-15.5) % Plt Count (150-450) k/uL MPV Neutrophils % % Lymphocytes % % Monocytes % % Eosinophils % % Basophils % % Neutrophils # (1.3-7.7) k/uL Lymphocytes # (1.0-4.8) k/uL Monocytes # (0-1.0) k/uL Eosinophils # (0-0.7) k/uL Basophils # (0-0.2) k/uL PT (9.0-12.0) sec INR (<1.2) APTT (22.0-30.0) sec Sodium (137-145) mmol/L Potassium (3.5-5.1) mmol/L Chloride (98-107) mmol/L Carbon Dioxide (22-30) mmol/L Anion Gap mmol/L BUN (7-17) mg/dL Creatinine (0.52-1.04) mg/dL Est GFR (CKD-EPI)AfAm (>60 ml/min/1.73 sqM) Est GFR (CKD-EPI)NonAf (>60 ml/min/1.73 sqM) Glucose (74-99) mg/dL Calcium (8.4-10.2) mg/dL Phosphorus (2.5-4.5) mg/dL Magnesium (1.6-2.3) mg/dL Total Bilirubin (0.2-1.3) mg/dL AST (14-36) U/L ALT (4-34) U/L Alkaline Phosphatase (38-126) U/L Creatine Kinase (30-135) U/L Troponin I 0.014 (0.000-0.034) ng/mL Total Protein (6.3-8.2) g/dL Albumin (3.5-5.0) g/dL Urine Color Light Yellow Urine Appearance Clear (Clear) Urine pH 7.0 (5.0-8.0) Ur Specific [place] 1.006 (1.001-1.035) Urine Protein Negative (Negative) Urine Glucose (UA) Negative (Negative) Urine Ketones Negative (Negative) Urine Blood Negative (Negative) Urine Nitrite Negative (Negative) Urine Bilirubin Negative (Negative) Urine Urobilinogen <2.0 (<2.0) mg/dL Ur Leukocyte Esterase Negative (Negative) - Radiology Data Radiology results: report reviewed (CT brain is negative for acute disease), image reviewed Disposition Clinical Impression: Hypertensive urgency, Migraine headache Disposition: HOME SELF-CARE Condition: Good Instructions (If sedation given, give patient instructions): Acute Headache (ED) Is patient prescribed a controlled substance at d/c from ED?: No Referrals: Yossi Fernandes DO [Primary Care Provider] - 1-2 days
[2020-07-25 01:02] VITALS: TEMP 98.3
[2020-07-25 01:19] LABS: Basophils # (A) 0.1 k/uL (0-0.2); Basophils % (A) 2 %; Eosinophils # (A) 0.6 k/uL (0-0.7); Eosinophils % (A) 7 %; HCT 40.4 % (34.0-46.0); HGB 13.8 gm/dL (11.4-16.0); Lymphocytes % (A) 34 %; MCH 30.8 pg (25.0-35.0); MCHC 34.2 g/dL (31.0-37.0); MCV 90.1 fL (80.0-100.0); Mean Platelet Volume 8.3; Monocytes # (A) 0.8 k/uL (0-1.0); Monocytes % (A) 9 %; Neutrophils # (A) 4.1 k/uL (1.3-7.7); Neutrophils % (A) 46 %; Platelet Count 236 k/uL (150-450); RBC 4.49 m/uL (3.80-5.40); WBC 8.9 k/uL (3.8-10.6)
--- NOTE | 2020-07-25 01:23 | CT ---
EXAM: CT Head Without Intravenous Contrast CLINICAL HISTORY: weakness TECHNIQUE: Axial computed tomography images of the head/brain without intravenous contrast. CTDI is normal 49.27 mGy and DLP is 1099.4 mGy-cm. This CT exam was performed using one or more of the following dose reduction techniques: automated exposure control, adjustment of the mA and/or kV according to patient size, and/or use of iterative reconstruction technique. COMPARISON: 03/19/18 FINDINGS: Brain: Encephalomalacia of left occipital lobe is not present on the comparison study. Moderate age-related generalized brain volume loss and chronic small vessel ischemic changes. No hemorrhage. Small old infarct in the periphery of right cerebellum Ventricles: Unremarkable. No ventriculomegaly. Bones/joints: Unremarkable. No acute fracture. Soft tissues: Unremarkable. Sinuses: Unremarkable as visualized. No acute sinusitis. Mastoid air cells: Unremarkable as visualized. No mastoid effusion. Orbits: Bilateral cataract surgeries. IMPRESSION: No intracranial hemorrhage. If acute intracranial infarct is of concern, MRI may help further evaluate if patient is a candidate.
--- NOTE | 2020-07-25 01:35 | XR ---
EXAM: XR Chest, 2 Views CLINICAL HISTORY: ITS.REASON XR Reason: Weakness TECHNIQUE: Frontal and lateral views of the chest. COMPARISON: Chest x-ray dated 03/19/2018 FINDINGS: Lungs: See below. Pleural space: Opacity left lung base likely representing pleural effusion and atelectasis. Pneumonia is not excluded. Heart: Unremarkable. Mediastinum: Unremarkable. Bones/joints: Degenerative changes of the left shoulder. Lymph nodes: Perihilar opacities which may represent early pulmonary vascular congestion, lymphadenopathy, versus an infectious process. IMPRESSION: 1. Opacity left lung base likely representing pleural effusion and atelectasis. Pneumonia is not excluded. 2. Perihilar opacities which may represent early pulmonary vascular congestion, lymphadenopathy, versus an infectious process.
[2020-07-25 01:45] LABS: Albumin 3.7 g/dL (3.5-5.0); Magnesium 1.8 mg/dL (1.6-2.3); Phosphorus 3.5 mg/dL (2.5-4.5); Total Bilirubin 0.9 mg/dL (0.2-1.3); Total Protein 6.8 g/dL (6.3-8.2)
[2020-07-25 01:49] LABS: INR 0.9 (<1.2); Prothrombin Time 9.8 sec (9.0-12.0)
[2020-07-25 02:01] VITALS: RESP 16
[2020-07-25 02:13] LABS: Partial Thromboplastin Time 19.1 sec (22.0-30.0)
[2020-07-25 02:16] LABS: Potassium 4.8 mmol/L (3.5-5.1)
[2020-07-25 02:31] LABS: Appearance,Urine Clear (Clear); Bilirubin,Urine Negative (Negative); Blood,Urine Negative (Negative); Color,Urine Light Yellow; Glucose,Urine (UA) Negative (Negative); Ketones,Urine Negative (Negative); Leukocyte Esterase,Urine Negative (Negative); Nitrite,Urine Negative (Negative); Protein,Urine Negative (Negative); Specific Gravity,Urine 1.006 (1.001-1.035); Urobilinogen,Urine <2.0 mg/dL (<2.0)
[2020-07-25] MEDS ORDERED: KETOROLAC 15 MG/ML 1 ML VIAL IVP STA (02:34)
[2020-07-25] MEDS ORDERED: diphenhydrAMINE 50 MG/ML 1 ML VIAL IVP STA (02:34)
[2020-07-25] MEDS ORDERED: LABETALOL 5 MG/ML VIAL MDV IVP STA (02:34)
[2020-07-25 03:05] VITALS: BP 162/80; PULSE 71
== END 2020-07-25 05:10 | disposition home or self-care (01) ==
LOC: EC 00:50
DX: G43.909 Migraine, unspecified, not intractable, without status migrainosus (principal); I16.0 Hypertensive urgency; I10 Essential (primary) hypertension; Z79.899 Other long term (current) drug therapy; Z88.5 Allergy status to narcotic agent; Z88.8 Allergy status to other drugs, medicaments and biological substances; Z90.49 Acquired absence of other specified parts of digestive tract; Z86.73 Personal history of transient ischemic attack (TIA), and cerebral infarction without residual deficits; Z90.710 Acquired absence of both cervix and uterus
CPT/HCPCS: 36415; 70450; 71046; 80053; 81003; 82550; 83735; 84100; 84484; 85025; 85610; 85730; 93005; 96360; 99285

== ENCOUNTER 2020-07-30 15:16 | Emergency (ER) | payer MEDICARE ==
[2020-07-30 15:28] VITALS: RESP 16; TEMP 97.6
[2020-07-30] MEDS ORDERED: SODIUM CHLORIDE 0.9% 1,000 ML IV STA (15:52)
--- NOTE | 2020-07-30 16:10 | ED ---
Headache HPI - General Chief Complaint: Headache Stated Complaint: Headache Time Seen by Provider: 07/30/20 15:30 Mode of arrival: EMS Limitations: no limitations - History of Present Illness Initial Comments: Patient is an 84-year-old female presenting to the emergency department via EMS with complaints of a headache. Patient states she does have history of headaches/migraines sent "she had her babies in 1965." Patient states when she feels like one is coming on she usually takes ibuprofen and it helps with her symptoms. She states she normally gets some facial numbness with her headaches as well and that is her normal. Patient states she was seen in the ER about 5 d ays ago for similar complaint and her blood pressure was high. She did have a workup and her exam was normal. Patient was discharged home. She states she has been doing well but then today noticed a headache again, she did take an ibuprofen this morning which did seem to help a little bit but then the headache came back. She describes the headache as mostly on the top of her head with some radiation into the front. She denies any numbness and tingling of her face or extremities. She denies any vision loss, she does have some blurry vision but states that this is normal for her as she does not always wear her glasses. She denies any falls or trauma. Denies any fever or chills. She did take her blood pressure medication this morning. She has no further complaints at this time. Upon arrival to the ER, her vital signs are stable, her BP is 155/75. - Related Data Home Medications Medication Instructions Recorded Confirmed Cholecalciferol [Vitamin D3 (25 1,000 unit PO DAILY 03/19/18 07/30/20 Mcg = 1000 Iu)] Famotidine [Pepcid] 20 mg PO DAILY 07/30/20 07/30/20 Metoprolol Succinate (ER) [Toprol 100 mg PO DAILY 07/30/20 07/30/20 Xl] Ubidecarenone [Co Q-10] 100 mg PO DAILY 07/30/20 07/30/20 hydroCHLOROthiazide [Hydrodiuril] 25 mg PO DAILY 07/30/20 07/30/20 lisinopriL [Zestril] 5 mg PO HS 07/30/20 07/30/20 Allergies Allergy/AdvReac Type Severity Reaction Status Date / Time codeine AdvReac Unknown Verified 07/30/20 16:45 telmisartan [From Micardis] AdvReac DIZZINESS Verified 07/30/20 16:45 Review of Systems ROS Statement: Those systems with pertinent positive or pertinent negative responses have been documented in the HPI. ROS Other: All systems not noted in ROS Statement are negative. Past Medical History Past Medical History: CVA/TIA, Hyperlipidemia, Hypertension History of Any Multi-Drug Resistant Organisms: None Reported Past Surgical History: Appendectomy, Hysterectomy, Orthopedic Surgery Past Psychological History: No Psychological Hx Reported Smoking Status: Former smoker Past Alcohol Use History: None Reported Past Drug Use History: None Reported General Exam - General Exam Comments Initial Comments: GENERAL: Patient is well-developed and well-nourished. Patient is nontoxic and in no acute distress. HEAD: Atraumatic, normocephalic. EYES: Pupils equal round and reactive to light, extraocular movements intact, sclera anicteric, conjunctiva are normal. Eyelids were unremarkable. ENT: TMs normal, nares patent, oropharynx clear without exudates. Moist mucous membranes. NECK: Normal range of motion, supple without lymphadenopathy or JVD. LUNGS: Unlabored respirations. Breath sounds clear to auscultation bilaterally and equal. No wheezes rales or rhonchi. HEART: Regular rate and rhythm without murmurs, rubs or gallops. ABDOMEN: Soft, nontender, normoactive bowel sounds. No guarding, no rebound. No masses appreciated. : Deferred MUSCULOSKELETAL: Normal extremities with adequate strength and normal range of motion, no pitting or edema. No clubbing or cyanosis. NEUROLOGICAL: Patient is alert and oriented x 3. Motor and sensory are also intact. Cranial nerves II through XII grossly intact. Symmetrical smile. Normal speech, normal gait. PSYCH: Normal mood, normal affect. SKIN: Warm, Dry, normal turgor, no rashes or lesions noted. Limitations: no limitations Neurological exam: Present: CN II-XII intact, normal gait Expanded Speech: Present: fluid speech Cranial nerves: EOM's Intact: Normal, Tongue Deviation: Normal, Nystagmus: Normal, Facial Sensation: Normal Cerebellar function: Finger to Nose: Normal Upper motor neuron: Pronator Drift: Normal Sensory exam: Upper Extremity Light Touch: Normal, Lower Extremity Light Touch: Normal Course Vital Signs 01/07/30/20 07/30/20 15:19 17:04 17:54 Temperature 97.6 F 97.6 F 97.6 F Pulse Rate 53 L 55 L 52 L Respiratory 16 16 16 Rate Blood Pressure 155/75 181/86 136/56 O2 Sat by Pulse 98 96 97 Oximetry Medical Decision Making - Medical Decision Making Patient is a 84-year-old female here for a headache that started this morning. Patient states she does have history of headaches for the last several years, she did take an ibuprofen which did seem to help. She was concerned that her blood pressure may be going up again 2. Patient was seen in the ER 5 days ago for same complaint, had normal workup, including normal CT of the brain. She arrived via EMS with a blood pressure 155/75, rest of vitals were normal. Her exam is unremarkable, no acute neuro deficits. Patient's lab work is also stable, no acute process, urine shows no evidence of infection. Patient's headache has been very minimal in the ER, she declined any pain medicine. I did give her some fluids. During her ER stay, her blood pressure did continue to rise slightly did give her 20 mg of labetalol, which did help her blood pressure. Patient's daughter is here with patient and states they do have a follow-up with her PCP concerning these headaches. Patient is stable for discharge. She states she has no headache and feels better and wishes to go home. Patient's daughter is in agreement with this plan of care. They will continue to follow-up with her PCP. Strict return parameters were discussed with the patient and her daughter and they both verbalized understanding. Case discussed with Dr. Mcdonough. - Lab Data Result diagrams: 07/30/20 16:11 07/30/20 16:11 Lab Results 07/30/20 07/30/20 07/30/20 Range/Units 16:11 16:11 16:11 WBC 9.0 (3.8-10.6) k/uL RBC 4.68 (3.80-5.40) m/uL Hgb 14.3 (11.4-16.0) gm/dL Hct 41.9 (34.0-46.0) % MCV 89.6 (80.0-100.0) fL MCH 30.5 (25.0-35.0) pg MCHC 34.1 (31.0-37.0) g/dL RDW 12.1 (11.5-15.5) % Plt Count 243 (150-450) k/uL MPV 7.6 Neutrophils % 66 % Lymphocytes % 21 % Monocytes % 7 % Eosinophils % 4 % Basophils % 1 % Neutrophils # 6.0 (1.3-7.7) k/uL Lymphocytes # 1.9 (1.0-4.8) k/uL Monocytes # 0.6 (0-1.0) k/uL Eosinophils # 0.3 (0-0.7) k/uL Basophils # 0.1 (0-0.2) k/uL PT 10.0 (9.0-12.0) sec INR 0.9 (<1.2) APTT 21.6 L (22.0-30.0) sec Sodium 135 L (137-145) mmol/L Potassium 4.4 (3.5-5.1) mmol/L Chloride 103 (98-107) mmol/L Carbon Dioxide 28 (22-30) mmol/L Anion Gap 4 mmol/L BUN 24 H (7-17) mg/dL Creatinine 0.87 (0.52-1.04) mg/dL Est GFR (CKD-EPI)AfAm 70 (>60 ml/min/1.73 sqM) Est GFR (CKD-EPI)NonAf 61 (>60 ml/min/1.73 sqM) Glucose 164 H (74-99) mg/dL Calcium 9.5 (8.4-10.2) mg/dL Total Bilirubin 0.7 (0.2-1.3) mg/dL AST 28 (14-36) U/L ALT 19 (4-34) U/L Alkaline Phosphatase 51 (38-126) U/L Total Protein 6.8 (6.3-8.2) g/dL Albumin 3.8 (3.5-5.0) g/dL Urine Color Urine Appearance (Clear) Urine pH (5.0-8.0) Ur Specific [place] (1.001-1.035) Urine Protein (Negative) Urine Glucose (UA) (Negative) Urine Ketones (Negative) Urine Blood (Negative) Urine Nitrite (Negative) Urine Bilirubin (Negative) Urine Urobilinogen (<2.0) mg/dL Ur Leukocyte Esterase (Negative) 07/30/20 Range/Units 17:37 WBC (3.8-10.6) k/uL RBC (3.80-5.40) m/uL Hgb (11.4-16.0) gm/dL Hct (34.0-46.0) % MCV (80.0-100.0) fL MCH (25.0-35.0) pg MCHC (31.0-37.0) g/dL RDW (11.5-15.5) % Plt Count (150-450) k/uL MPV Neutrophils % % Lymphocytes % % Monocytes % % Eosinophils % % Basophils % % Neutrophils # (1.3-7.7) k/uL Lymphocytes # (1.0-4.8) k/uL Monocytes # (0-1.0) k/uL Eosinophils # (0-0.7) k/uL Basophils # (0-0.2) k/uL PT (9.0-12.0) sec INR (<1.2) APTT (22.0-30.0) sec Sodium (137-145) mmol/L Potassium (3.5-5.1) mmol/L Chloride (98-107) mmol/L Carbon Dioxide (22-30) mmol/L Anion Gap mmol/L BUN (7-17) mg/dL Creatinine (0.52-1.04) mg/dL Est GFR (CKD-EPI)AfAm (>60 ml/min/1.73 sqM) Est GFR (CKD-EPI)NonAf (>60 ml/min/1.73 sqM) Glucose (74-99) mg/dL Calcium (8.4-10.2) mg/dL Total Bilirubin (0.2-1.3) mg/dL AST (14-36) U/L ALT (4-34) U/L Alkaline Phosphatase (38-126) U/L Total Protein (6.3-8.2) g/dL Albumin (3.5-5.0) g/dL Urine Color Yellow Urine Appearance Clear (Clear) Urine pH 6.5 (5.0-8.0) Ur Specific [place] 1.015 (1.001-1.035) Urine Protein Negative (Negative) Urine Glucose (UA) Negative (Negative) Urine Ketones Negative (Negative) Urine Blood Negative (Negative) Urine Nitrite Negative (Negative) Urine Bilirubin Negative (Negative) Urine Urobilinogen <2.0 (<2.0) mg/dL Ur Leukocyte Esterase Negative (Negative) Disposition Clinical Impression: Headache Disposition: HOME SELF-CARE Condition: Stable Instructions (If sedation given, give patient instructions): Acute Headache (ED) Additional Instructions: Please return to the Emergency Department if symptoms worsen or any other concerns. Please follow-up with your regular doctor concerning headaches. Continue with your prescribed medications. Is patient prescribed a controlled substance at d/c from ED?: No Referrals: Yossi Fernandes DO [Primary Care Provider] - 1-2 days
[2020-07-30 16:16] LABS: Basophils # (A) 0.1 k/uL (0-0.2); Basophils % (A) 1 %; Eosinophils # (A) 0.3 k/uL (0-0.7); Eosinophils % (A) 4 %; HCT 41.9 % (34.0-46.0); HGB 14.3 gm/dL (11.4-16.0); Lymphocytes # (A) 1.9 k/uL (1.0-4.8); Lymphocytes % (A) 21 %; MCH 30.5 pg (25.0-35.0); MCHC 34.1 g/dL (31.0-37.0); MCV 89.6 fL (80.0-100.0); Mean Platelet Volume 7.6; Monocytes # (A) 0.6 k/uL (0-1.0); Monocytes % (A) 7 %; Neutrophils % (A) 66 %; Platelet Count 243 k/uL (150-450); RBC 4.68 m/uL (3.80-5.40); RDW 12.1 % (11.5-15.5)
[2020-07-30 16:26] LABS: Albumin 3.8 g/dL (3.5-5.0); Calcium 9.5 mg/dL (8.4-10.2); Potassium 4.4 mmol/L (3.5-5.1); Total Bilirubin 0.7 mg/dL (0.2-1.3); Total Protein 6.8 g/dL (6.3-8.2)
[2020-07-30] MEDS ORDERED: LABETALOL 5 MG/ML VIAL MDV IVP STA (16:53)
[2020-07-30 17:04] LABS: INR 0.9 (<1.2)
[2020-07-30 17:11] LABS: Partial Thromboplastin Time 21.6 sec (22.0-30.0)
[2020-07-30 17:42] LABS: Appearance,Urine Clear (Clear); Bilirubin,Urine Negative (Negative); Blood,Urine Negative (Negative); Color,Urine Yellow; Glucose,Urine (UA) Negative (Negative); Ketones,Urine Negative (Negative); Leukocyte Esterase,Urine Negative (Negative); Nitrite,Urine Negative (Negative); PH, Urine 6.5 (5.0-8.0); Protein,Urine Negative (Negative); Specific Gravity,Urine 1.015 (1.001-1.035); Urobilinogen,Urine <2.0 mg/dL (<2.0)
[2020-07-30 17:56] VITALS: BP 136/56; PULSE 52
== END 2020-07-30 18:38 | disposition home or self-care (01) ==
LOC: EC 15:16
DX: R51.9 Headache, unspecified (principal); I10 Essential (primary) hypertension; Z79.899 Other long term (current) drug therapy; Z88.5 Allergy status to narcotic agent; Z88.8 Allergy status to other drugs, medicaments and biological substances; Z86.73 Personal history of transient ischemic attack (TIA), and cerebral infarction without residual deficits; Z90.49 Acquired absence of other specified parts of digestive tract; Z90.710 Acquired absence of both cervix and uterus; Z87.891 Personal history of nicotine dependence
CPT/HCPCS: 36415; 80053; 81003; 85025; 85610; 85730; 96361; 96374; 99283

== ENCOUNTER → 2020-08-23 | Outpatient (CLI) | payer MEDICARE, BC ==
--- NOTE | 2020-08-23 22:21 | US ---
EXAMINATION TYPE: US carotid duplex BILAT DATE OF EXAM: 08/23/2020 COMPARISON: NONE CLINICAL HISTORY: R51.9 HEADACHE. EXAM MEASUREMENTS: RIGHT: Peak Systolic Velocity (PSV) cm/sec ----- Right CCA: 25.3 ----- Right ICA: 57.4 ----- Right ECA: 59.8 ICA/CCA ratio: 2.3 RIGHT: End Diastole cm/sec ----- Right CCA: 5.7 ----- Right ICA: 0.0 ----- Right ECA: 0.0 LEFT: Peak Systolic Velocity (PSV) cm/sec ----- Left CCA: 70.8 ----- Left ICA: 118.0 ----- Left ECA: 86.0 ICA/CCA ratio: 1.7 LEFT: End Diastole cm/sec ----- Left CCA: 8.5 ----- Left ICA: 23.3 ----- Left ECA: 10.1 VERTEBRALS (direction of flow): Right Vertebral: Antegrade Left Vertebral: Antegrade Rhythm: Normal Difficult to visualize right ICA and ECA due to patient's short neck and limited range of motion Suboptimal study. Moderate to severe shadowing plaque right carotid bulb is present. Similar moderate to severe plaque left carotid bulb. Overall diminished velocity right common carotid artery is belle rning. Follow-up advised. IMPRESSION: Moderate to severe plaque bilaterally. Cannot exclude hemodynamically significant stenos is on the right. Further investigation with CTA or MRA is advised. Criteria for Assigning % of Stenosis / Diameter reduction (Estimation based on the indirect measurements of the internal carotid artery velocities (ICA PSV). 1. Normal (no stenosis)=ICA PSV < 125 cm/s: ratio < 2.0: ICA EDV<40 cm/s. 2. Less than 50% stenosis=ICA PSV < 125 cm/s: ratio < 2.0: ICA EDV<40 cm/s. 3. 50 to 69% stenosis=ICA PSV of 125 to 230 cm/s: ration 2.0 ? 4.0: ICA EDV 40-100 cm/s. 4. Greater than 70% stenosis to near occlusion= ICA PSV > 230 cm/s: ratio > 4.0: ICA EDV > 100 cm/s. 5. Near occlusion= ICA PSV velocities may be low or undetectable: variable ratio and ICA EDV. 6. Total occlusion=unable to detect flow.
== END | disposition home or self-care (01) ==
LOC: RADUSWWP 15:31
PROVIDERS: ATTEND Family Medicine
DX: I65.21 Occlusion and stenosis of right carotid artery (principal)
CPT/HCPCS: 93880

== ENCOUNTER → 2020-08-27 | Outpatient (CLI) | payer MEDICARE, BC ==
--- NOTE | 2020-08-28 02:54 | MR ---
EXAMINATION TYPE: MR brain wo/w con DATE OF EXAM: 08/27/2020 COMPARISON: None HISTORY: Stroke symptoms, memory loss, migraines. CONTRAST: Standard multiplanar, multisequence MRI departmental protocol utilizing 7 mL intravenous Gadavist marisa olinium contrast. There is diffuse cerebral atrophy. There is no mass effect nor midline shift. There is no sign of int racranial hemorrhage. There is abnormal increased signal in the evans and white matter left occipital lobe. This does not show significant increased signal on the diffusion images and is consistent with an old infarct. On the T2 and FLAIR images there are patchy areas of abnormal increased signal in the white matter bryan th cerebral hemispheres. These measure up to 1 cm and some of these are coalescent. There is mild pro minence of the ventricles. There is mild thinning of the corpus callosum. Sella turcica is intact. Contrast images show no pathologic enhancement. There is normal enhancement of the venous sinuses. Th ere is arterial flow in the anterior middle and posterior cerebral arteries. There is arterial flow i n the vertebrobasilar artery system. IMPRESSION: Cerebral atrophy and chronic small vessel ischemia. Old left occipital lobe infarct. Mild hydrocephal us. No sign of an acute cortical infarct.
--- NOTE | 2020-08-28 02:58 | MR ---
EXAMINATION TYPE: MR angio head wo con DATE OF EXAM: 08/27/2020 COMPARISON: None HISTORY: Stroke symptoms, memory loss, migraines. MR angiographic images were obtained of the intracerebral arterial circulation. There is arterial flow in the anterior middle and posterior cerebral arteries. There is arterial flow in the vertebrobasilar artery system. Left vertebral artery is larger than the right. There is bulbo us appearance of the origin of the right posterior cerebral artery at the tip of the basilar artery. There is 4 mm aneurysm. There is no mass effect. There is no evidence of intracranial arterial stenosis. 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 No evidence of hem odynamic stenosis.
== END | disposition home or self-care (01) ==
LOC: RADMRIMAIN 11:57
PROVIDERS: ATTEND Family Medicine
DX: G31.9 Degenerative disease of nervous system, unspecified (principal); I67.82 Cerebral ischemia; G91.9 Hydrocephalus, unspecified; Z86.73 Personal history of transient ischemic attack (TIA), and cerebral infarction without residual deficits; I67.1 Cerebral aneurysm, nonruptured
CPT/HCPCS: 70544; 70553; A9585

== ENCOUNTER → 2021-01-07 | Outpatient (CLI) | payer MEDICARE, BC ==
--- NOTE | 2021-01-07 16:14 | EEG ---
ELECTROENCEPHALOGRAM REPORT DATE OF SERVICE: 01/07/2021. CLINICAL HISTORY: This is an 85-year-old woman with reported history of confusion. This video EEG is obtained to evaluate for seizure, epileptiform activity. RELEVANT MEDICATION: The patient is not on any antiepileptic drugs. EEG TYPE: A routine 21 channel EEG is performed with video using the 10/20 electrode placement system. DESCRIPTION: Wakefulness and drowsiness are obtained. During wakefulness, the background consisted of low to moderate voltage of 8-8.5 hertz activity that is well modulated. During drowsiness, there is slowing and attenuation of background activity. There is no physiological stage II sleep. There is no focal slowing. Interictal and ictal are none. ACTIVATION PROCEDURES: Photic stimulation did not evoke a posterior driving response. Hyperventilation was not performed. CLINICAL INTERPRETATION: This is a normal routine EEG. There are no focal slowing, epileptiform discharges or seizure on the EEG. Clinical correlation is recommended. SULEMA / BRIELLE: [id number] / [place]
== END ==
LOC: NEUROMAIN 07:40
PROVIDERS: ATTEND Family Medicine
DX: R41.82 Altered mental status, unspecified (principal); Z88.5 Allergy status to narcotic agent; Z88.8 Allergy status to other drugs, medicaments and biological substances
CPT/HCPCS: 95816

== ENCOUNTER → 2022-02-23 | Outpatient (CLI) | payer MEDICARE, BC ==
--- NOTE | 2022-02-23 15:32 | US ---
EXAMINATION TYPE: US venous doppler duplex LE DATE OF EXAM: 02/23/2022 2:28 PM COMPARISON: NONE CLINICAL HISTORY: R22.32 SWELLING, MASS AND LUMP. SIDE PERFORMED: Bilateral TECHNIQUE: The lower extremity deep venous system is examined utilizing real time linear array sonog martin with graded compression, doppler sonography and color-flow sonography. VESSELS IMAGED: Common Femoral Vein Deep Femoral Vein Greater Saphenous Vein * Femoral Vein Popliteal Vein Small Saphenous Vein * Proximal Calf Veins (* superficial vessels) Right Leg: Appears negative for DVT Left Leg: Appears negative for DVT Grayscale, color doppler, spectral doppler imaging performed of the deep veins of the lower extremiti es. There is normal flow, compressibility, vascular waveforms. IMPRESSION: No evidence of deep vein thrombosis of either lower extremity.
--- NOTE | 2022-02-23 15:34 | US ---
EXAMINATION TYPE: US venous doppler duplex UE DATE OF EXAM: 02/23/2022 COMPARISON: NONE CLINICAL HISTORY: R22.32 Localized swelling, mass and lump, left upp. SIDE PERFORMED: Bilateral Right Arm: Appears negative for DVT Left Arm: Appears negative for DVT Grayscale, color doppler, spectral doppler imaging performed of the deep veins of the upper extremiti es. There is normal flow, compressibility and vascular waveforms. IMPRESSION: No evidence of deep vein thrombosis of either upper extremity
== END | disposition home or self-care (01) ==
LOC: RADUSWWP 13:31
PROVIDERS: ATTEND Family Medicine
DX: R22.32 Localized swelling, mass and lump, left upper limb (principal)
CPT/HCPCS: 93970

== ENCOUNTER → 2022-02-28 | Outpatient (CLI) | payer MEDICARE, BC ==
--- NOTE | 2022-03-01 10:25 | CA ---
Transthoracic Echo Report Name: Marielle Boudreaux Age: 86 Gender: F : 1935 Exam Date: 02/28/2022 14:03 Exam Location: [facility] Ht (in): 50 Wt (lb): 150 Ordering Physician: Yossi Fernandes DO Attending/Referring Phys: Dipper Machine Operator Krystin Rodríguez RDCS Procedure CPT: Indications: R60.0 LOCALIZED EDEMA Cardiac Hx: Technical Quality: Fair Contrast 1: Total Dose (mL): Contrast 2: Total Dose (mL): MEASUREMENTS (Male / Female) Normal Values 2D ECHO LV Diastolic Diameter PLAX 3.5 cm 4.2 - 5.9 / 3.9 - 5.3 cm LV Systolic Diameter PLAX 2.0 cm IVS Diastolic Thickness 1.3 cm 0.6 - 1.0 / 0.6 - 0.9 cm LVPW Diastolic Thickness 1.2 cm 0.6 - 1.0 / 0.6 - 0.9 cm LV Relative Wall Thickness 0.7 RV Internal Dim ED PLAX 2.6 cm M-MODE Aortic Root Diameter MM 2.8 cm LA Systolic Diameter MM 3.7 cm LA Ao Ratio MM 1.3 MV E Point Septal Separation 0.4 cm AV Cusp Separation MM 1.8 cm DOPPLER AV Peak Velocity 91.1 cm/s AV Peak Gradient 3.3 mmHg MV Area PHT 2.3 cm??? MR Peak Velocity 323.3 cm/s MR Peak Gradient 41.8 mmHg Mitral E Point Velocity 74.5 cm/s Mitral A Point Velocity 50.8 cm/s Mitral E to A Ratio 1.5 MV Deceleration Time 335.6 ms MV E' Velocity 6.2 cm/s Mitral E to MV E' Ratio 12.0 TR Peak Velocity 220.7 cm/s TR Peak Gradient 19.5 mmHg Right Ventricular Systolic Press 23.3 mmHg FINDINGS Left Ventricle Mildly increased septal wall thickness. Mildly increased posterior wall thickness. Grade 1 diastolic dysfunction. Left ventricular ejection fraction is estimated at 55-60 %. Left ventricular cavity size normal. Right Ventricle The right ventricle is normal in size and function. Right Atrium The right atrium is normal in size. Left Atrium Mildly increased left atrial area. Patent foramen ovale. Mitral Valve Structurally normal mitral valve without significant stenosis or prolapse. There is mild mitral regurgitation. Aortic Valve Structurally normal aortic valve without significant sclerosis or stenosis. There is no aortic regurgitation. Tricuspid Valve Structurally normal tricuspid valve without significant stenosis. Pulmonary artery systolic pressure is normal. Trace tricuspid regurgitation. Pulmonic Valve Structurally normal pulmonic valve without significant stenosis. There is no pulmonic regurgitation. Pericardium Minimal pericardial effusion Aorta Normal aortic root dimension. CONCLUSIONS Technically difficult study for interpretation Concentric left ventricular hypertrophy Normal left ventricular dimension and systolic function Poorly visualized intracardiac valves Previewed by: Dr. Louie Arteaga MD (Electronically Signed) Final Date: 01 March 2022 10:24
== END | disposition home or self-care (01) ==
LOC: RADECHMAIN 13:52
PROVIDERS: ATTEND Family Medicine
DX: R60.0 Localized edema (principal)
CPT/HCPCS: 93306

== ENCOUNTER 2022-03-27 15:48 | Emergency (ER) | payer MEDICARE, BC ==
[2022-03-27 15:55] VITALS: RESP 16; TEMP 98.2
--- NOTE | 2022-03-27 16:10 | ED ---
General Adult HPI - General Chief complaint: Altered Mental Status Stated complaint: Alterend Mental Time Seen by Provider: 03/27/22 16:01 Source: patient Mode of arrival: EMS Limitations: no limitations - History of Present Illness Initial comments: Patient is an 86-year-old woman who is sent from her residence to have evaluation for reported altered mental status, confusion, and malaise. When I interview the patient, and asked her what is bothering her she states that her left knee is hurting. She states she has long-standing knee pain. She states that it is because the left leg is shorter and she always falls on her knee. The patient on review of systems is denying pain other locations. She is denying dyspnea. -: unknown Location: left, lower extremity Quality: other (Unable to characterize) Consistency: intermittent Improves with: none Worsens with: none Associated Symptoms: denies other symptoms - Related Data Home Medications Medication Instructions Recorded Confirmed Famotidine [Pepcid] 20 mg PO DAILY 07/30/20 03/27/22 Metoprolol Succinate (ER) [Toprol 100 mg PO DAILY 07/30/20 03/27/22 Xl] hydroCHLOROthiazide [Hydrodiuril] 25 mg PO DAILY 07/30/20 03/27/22 lisinopriL [Zestril] 5 mg PO DAILY 07/30/20 03/27/22 Brinzolamide [Azopt 1% Ophth Susp] 1 drop RIGHT EYE BID 03/27/22 03/27/22 Furosemide [Lasix] 20 mg PO DAILY 03/27/22 03/27/22 Latanoprost/Pf [Latanoprost 0.005% 1 drop BOTH EYES HS 03/27/22 03/27/22 Eye Drop] Oxybutynin Chloride [Ditropan] 5 mg PO BID 03/27/22 03/27/22 Rivastigmine 4.6MG/24Hr Patch 1 patch TRANSDERM DAILY 03/27/22 03/27/22 [Exelon 4.6MG/24Hr Patch] Rosuvastatin Calcium 2.5 mg PO DAILY 03/27/22 03/27/22 Sertraline [Zoloft] 25 mg PO DAILY 03/27/22 03/27/22 predniSONE 5 mg PO DAILY 03/27/22 03/27/22 Previous Rx's Medication Instructions Recorded Levofloxacin [Levaquin] 750 mg PO DAILY 1 Days #7 tab 03/27/22 Allergies Allergy/AdvReac Type Severity Reaction Status Date / Time codeine AdvReac Unknown Verified 03/27/22 17:56 telmisartan [From Micardis] AdvReac DIZZINESS Verified 03/27/22 17:56 Review of Systems ROS Statement: Those systems with pertinent positive or pertinent negative responses have been documented in the HPI. ROS Other: All systems not noted in ROS Statement are negative. Constitutional: Denies: fever, weakness Respiratory: Denies: cough Cardiovascular: Denies: chest pain Gastrointestinal: Denies: abdominal pain, vomiting Musculoskeletal: Reports: as per HPI, arthralgia. Denies: back pain Neurological: Denies: headache Past Medical History Past Medical History: CVA/TIA, Dementia, Hyperlipidemia, Hypertension History of Any Multi-Drug Resistant Organisms: None Reported Past Surgical History: Appendectomy, Hysterectomy, Orthopedic Surgery Past Psychological History: No Psychological Hx Reported Smoking Status: Former smoker Past Alcohol Use History: None Reported Past Drug Use History: None Reported General Exam General appearance: alert, in no apparent distress Head exam: Present: atraumatic, normocephalic Eye exam: Present: normal appearance, PERRL, EOMI. Absent: scleral icterus, conjunctival injection ENT exam: Present: normal oropharynx Neck exam: Present: normal inspection, full ROM. Absent: tenderness, meningismus Respiratory exam: Present: rales (Left base). Absent: respiratory distress, wheezes, rhonchi, stridor, chest wall tenderness, accessory muscle use Cardiovascular Exam: Present: regular rate, normal rhythm, normal heart sounds. Absent: systolic murmur, diastolic murmur, rubs, gallop GI/Abdominal exam: Present: soft. Absent: distended, tenderness, guarding, rebound, rigid, mass Extremities exam: Present: normal inspection, normal capillary refill. Absent: pedal edema, calf tenderness Back exam: Present: normal inspection. Absent: CVA tenderness (R), CVA tenderness (L) Neurological exam: Present: alert, CN II-XII intact. Absent: oriented X3 (Patient is oriented to person and realizes she is at a doctor's office. She does not know the date), motor sensory deficit Skin exam: Present: warm, dry, intact, normal color. Absent: rash Course Vital Signs 03/27/22 15:50 Temperature 98.2 F Pulse Rate 74 Respiratory 16 Rate Blood Pressure 132/91 O2 Sat by Pulse 93 L Oximetry EKG Findings - EKG Results: EKG: interpreted by ERMD, normal axis, normal QRS, normal ST/T EKG shows: atrial fibrillation (Rate 68 bpm) Medical Decision Making - Lab Data Result diagrams: 03/27/22 16:20 03/27/22 16:20 Lab Results 03/27/22 03/27/22 03/27/22 Range/Units 16:20 16:20 16:20 WBC 9.2 (3.8-10.6) k/uL RBC 4.35 (3.80-5.40) m/uL Hgb 13.1 (11.4-16.0) gm/dL Hct 40.9 (34.0-46.0) % MCV 94.1 (80.0-100.0) fL MCH 30.2 (25.0-35.0) pg MCHC 32.1 (31.0-37.0) g/dL RDW 12.4 (11.5-15.5) % Plt Count 182 (150-450) k/uL MPV 7.7 Neutrophils % 79 % Lymphocytes % 12 % Monocytes % 5 % Eosinophils % 1 % Basophils % 0 % Neutrophils # 7.3 (1.3-7.7) k/uL Lymphocytes # 1.1 (1.0-4.8) k/uL Monocytes # 0.5 (0-1.0) k/uL Eosinophils # 0.1 (0-0.7) k/uL Basophils # 0.0 (0-0.2) k/uL PT 10.7 (9.0-12.0) sec INR 1.0 (<1.2) APTT 22.0 (22.0-30.0) sec Sodium 134 L (137-145) mmol/L Potassium 4.3 (3.5-5.1) mmol/L Chloride 101 (98-107) mmol/L Carbon Dioxide 23 (22-30) mmol/L Anion Gap 10 mmol/L BUN 22 H (7-17) mg/dL Creatinine 0.88 (0.52-1.04) mg/dL Est GFR (CKD-EPI)AfAm 69 (>60 ml/min/1.73 sqM) Est GFR (CKD-EPI)NonAf 60 (>60 ml/min/1.73 sqM) Glucose 183 H (74-99) mg/dL Calcium 8.9 (8.4-10.2) mg/dL Total Bilirubin 0.5 (0.2-1.3) mg/dL AST 18 (14-36) U/L ALT 19 (4-34) U/L Alkaline Phosphatase 47 (38-126) U/L Troponin I (0.000-0.034) ng/mL Total Protein 5.8 L (6.3-8.2) g/dL Albumin 3.5 (3.5-5.0) g/dL Urine Color Urine Appearance (Clear) Urine pH (5.0-8.0) Ur Specific [place] (1.001-1.035) Urine Protein (Negative) Urine Glucose (UA) (Negative) Urine Ketones (Negative) Urine Blood (Negative) Urine Nitrite (Negative) Urine Bilirubin (Negative) Urine Urobilinogen (<2.0) mg/dL Ur Leukocyte Esterase (Negative) Urine RBC (0-5) /hpf Urine WBC (0-5) /hpf Urine WBC Clumps (None) /hpf Ur Squamous Epith Cells (0-4) /hpf Urine Bacteria (None) /hpf Urine Mucus (None) /hpf Urine Opiates Screen (NotDetected) Ur Oxycodone Screen (NotDetected) Urine Methadone Screen (NotDetected) Ur Propoxyphene Screen (NotDetected) Ur Barbiturates Screen (NotDetected) U Tricyclic Antidepress (NotDetected) Ur Phencyclidine Scrn (NotDetected) Ur Amphetamines Screen (NotDetected) U Methamphetamines Scrn (NotDetected) U Benzodiazepines Scrn (NotDetected) Urine Cocaine Screen (NotDetected) U Marijuana (THC) Screen (NotDetected) 03/27/22 03/27/22 03/27/22 Range/Units 16:20 16:28 16:28 WBC (3.8-10.6) k/uL RBC (3.80-5.40) m/uL Hgb (11.4-16.0) gm/dL Hct (34.0-46.0) % MCV (80.0-100.0) fL MCH (25.0-35.0) pg MCHC (31.0-37.0) g/dL RDW (11.5-15.5) % Plt Count (150-450) k/uL MPV Neutrophils % % Lymphocytes % % Monocytes % % Eosinophils % % Basophils % % Neutrophils # (1.3-7.7) k/uL Lymphocytes # (1.0-4.8) k/uL Monocytes # (0-1.0) k/uL Eosinophils # (0-0.7) k/uL Basophils # (0-0.2) k/uL PT (9.0-12.0) sec INR (<1.2) APTT (22.0-30.0) sec Sodium (137-145) mmol/L Potassium (3.5-5.1) mmol/L Chloride (98-107) mmol/L Carbon Dioxide (22-30) mmol/L Anion Gap mmol/L BUN (7-17) mg/dL Creatinine (0.52-1.04) mg/dL Est GFR (CKD-EPI)AfAm (>60 ml/min/1.73 sqM) Est GFR (CKD-EPI)NonAf (>60 ml/min/1.73 sqM) Glucose (74-99) mg/dL Calcium (8.4-10.2) mg/dL Total Bilirubin (0.2-1.3) mg/dL AST (14-36) U/L ALT (4-34) U/L Alkaline Phosphatase (38-126) U/L Troponin I <0.012 (0.000-0.034) ng/mL Total Protein (6.3-8.2) g/dL Albumin (3.5-5.0) g/dL Urine Color Light Yellow Urine Appearance Cloudy H (Clear) Urine pH 5.5 (5.0-8.0) Ur Specific [place] 1.010 (1.001-1.035) Urine Protein Negative (Negative) Urine Glucose (UA) Negative (Negative) Urine Ketones Negative (Negative) Urine Blood Negative (Negative) Urine Nitrite Positive H (Negative) Urine Bilirubin Negative (Negative) Urine Urobilinogen <2.0 (<2.0) mg/dL Ur Leukocyte Esterase Large H (Negative) Urine RBC 4 (0-5) /hpf Urine WBC 120 H (0-5) /hpf Urine WBC Clumps Moderate H (None) /hpf Ur Squamous Epith Cells 1 (0-4) /hpf Urine Bacteria Occasional H (None) /hpf Urine Mucus Rare H (None) /hpf Urine Opiates Screen Not Detected (NotDetected) Ur Oxycodone Screen Not Detected (NotDetected) Urine Methadone Screen Not Detected (NotDetected) Ur Propoxyphene Screen Not Detected (NotDetected) Ur Barbiturates Screen Not Detected (NotDetected) U Tricyclic Antidepress Not Detected (NotDetected) Ur Phencyclidine Scrn Not Detected (NotDetected) Ur Amphetamines Screen Not Detected (NotDetected) U Methamphetamines Scrn Not Detected (NotDetected) U Benzodiazepines Scrn Not Detected (NotDetected) Urine Cocaine Screen Not Detected (NotDetected) U Marijuana (THC) Screen Not Detected (NotDetected) Disposition Clinical Impression: Urinary tract infection Disposition: HOME SELF-CARE Condition: Good Instructions (If sedation given, give patient instructions): Urinary Tract Infection in Women (DC) Prescriptions: Levofloxacin [Levaquin] 750 mg PO DAILY 1 Days #7 tab Is patient prescribed a controlled substance at d/c from ED?: No Referrals: Yossi Fernandes DO [Primary Care Provider] - 1-2 days
[2022-03-27 16:46] LABS: Basophils % (A) 0 %; Eosinophils # (A) 0.1 k/uL (0-0.7); Eosinophils % (A) 1 %; HCT 40.9 % (34.0-46.0); HGB 13.1 gm/dL (11.4-16.0); Lymphocytes # (A) 1.1 k/uL (1.0-4.8); Lymphocytes % (A) 12 %; MCH 30.2 pg (25.0-35.0); MCHC 32.1 g/dL (31.0-37.0); MCV 94.1 fL (80.0-100.0); Mean Platelet Volume 7.7; Monocytes # (A) 0.5 k/uL (0-1.0); Monocytes % (A) 5 %; Neutrophils # (A) 7.3 k/uL (1.3-7.7); Neutrophils % (A) 79 %; Platelet Count 182 k/uL (150-450); RBC 4.35 m/uL (3.80-5.40); RDW 12.4 % (11.5-15.5); WBC 9.2 k/uL (3.8-10.6)
[2022-03-27 17:01] LABS: Albumin 3.5 g/dL (3.5-5.0); Calcium 8.9 mg/dL (8.4-10.2); Potassium 4.3 mmol/L (3.5-5.1); Total Bilirubin 0.5 mg/dL (0.2-1.3); Total Protein 5.8 g/dL (6.3-8.2)
--- NOTE | 2022-03-27 17:02 | CT ---
EXAMINATION TYPE: CT brain wo con DATE OF EXAM: 03/27/2022 COMPARISON: None available HISTORY: ams CT DLP: 1054.4 mGycm Automated exposure control for dose reduction was used. Images obtained of the brain with no contrast. There is some cerebral atrophy. There is hypodensity in the periventricular white matter. There is gr ay-white matter hypodensity both occipital lobes. There is no mass effect nor midline shift. No sign of intracranial hemorrhage. IMPRESSION: Cerebral atrophy and chronic small vessel ischemia. 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 No acute i ntracranial abnormality.
[2022-03-27 17:04] LABS: Prothrombin Time 10.7 sec (9.0-12.0)
--- NOTE | 2022-03-27 17:14 | XR ---
EXAMINATION TYPE: XR femur LT DATE OF EXAM: 03/27/2022 COMPARISON: NONE HISTORY: Pain TECHNIQUE: 4 views FINDINGS: The hip joint is intact. There is narrowing of the medial joint space of the knee. There is spurring of the patella and spurring of the femoral and tibial condyles. Acetabulum is intact. No fr acture seen. 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 No fracture seen. Hip joint appea rs intact.
--- NOTE | 2022-03-27 17:16 | XR ---
EXAMINATION TYPE: XR tibia fibula LT DATE OF EXAM: 03/27/2022 COMPARISON: NONE HISTORY: Knee pain TECHNIQUE: 4 views FINDINGS: There is moderate narrowing of the medial joint space of the knee. There is subcutaneous edema around the lower leg. The tibia and fibula appear intact. No fracture. An kle mortise is anatomic. There is a large plantar calcaneal spur. There are small Achilles calcaneal spur. IMPRESSION: No fractures seen. Hypertrophic moderate osteoarthritis in the knee joint.
[2022-03-27 17:17] LABS: Amphetamine Screen,Urine Not Detected (NotDetected); Barbiturate Screen,Urine Not Detected (NotDetected); Benzodiazepines Screen,Urine Not Detected (NotDetected); Cocaine Screen,Urine Not Detected (NotDetected); Methadone Screen, Urine Not Detected (NotDetected); Opiate Screen,Urine Not Detected (NotDetected); Oxycodone Screen, Urine Not Detected (NotDetected); Phencyclidine Screen,Urine Not Detected (NotDetected); Tricyclic Antidepressant,Urine Not Detected (NotDetected); Urn Cannabinoid Scrn Not Detected (NotDetected)
--- NOTE | 2022-03-27 17:18 | XR ---
EXAMINATION TYPE: XR chest 2V DATE OF EXAM: 03/27/2022 COMPARISON: NONE HISTORY: Pain TECHNIQUE: 2 views FINDINGS: Heart is enlarged. There is mild pulmonary congestion. There are no hilar masses. Thoracic aorta is atheromatous. There are chest leads. There is slight blunting of the left costophrenic angle . There is thoracic dextroscoliosis. IMPRESSION: Cardiomegaly and small left pleural effusion. Small pneumonia left lower lobe is also pos sible. There is likely mild heart failure.
[2022-03-27 17:35] LABS: Appearance,Urine Cloudy (Clear); Bacteria,Urine Occasional /hpf; Bilirubin,Urine Negative (Negative); Blood,Urine Negative (Negative); Color,Urine Light Yellow; Glucose,Urine (UA) Negative (Negative); Ketones,Urine Negative (Negative); Leukocyte Esterase,Urine Large (Negative); Mucus,Urine Rare /hpf; Nitrite,Urine Positive (Negative); PH, Urine 5.5 (5.0-8.0); Protein,Urine Negative (Negative); RBC,Urine 4 /hpf (0-5); Squamous Epithelial Cell,Urine 1 /hpf (0-4); Urobilinogen,Urine <2.0 mg/dL (<2.0); WBC,Urine 120 /hpf (0-5)
[2022-03-27] MEDS ORDERED: LEVOFLOXACIN 750 MG TAB PO STA (17:55)
[2022-03-27 18:04] VITALS: BP 140/92; PULSE 60
== END 2022-03-27 18:40 | disposition home or self-care (01) ==
LOC: EC 15:48
DX: N39.0 Urinary tract infection, site not specified (principal); E78.5 Hyperlipidemia, unspecified; I10 Essential (primary) hypertension; Z86.73 Personal history of transient ischemic attack (TIA), and cerebral infarction without residual deficits; Z87.891 Personal history of nicotine dependence; Z88.5 Allergy status to narcotic agent; Z88.8 Allergy status to other drugs, medicaments and biological substances; Z79.899 Other long term (current) drug therapy
CPT/HCPCS: 36415; 70450; 71046; 80053; 80306; 81001; 84484; 85025; 85610; 85730; 93005; 99285